=== PATIENT | male | born 1980 | race Caucasian/White ===

== ENCOUNTER 2017-05-28 11:18 | Emergency (ER) | payer OTHER ==
[~2017-05-28] VITALS: Ht 147.3 cm; Wt 38.6 kg
[~2017-05-28 11:18] MED LIST: ACET325 PO; ALBU90OI INH; ALBU90OI6 INH; ALBUIS IH; AMOCLA500 PO; ANTOXYBENA BOTHEARS; ASCO500 PO; AZIT250 PO; CEPH250A PO; CETI10; CETI10 PO; CIPR250 PO; CIPR500 PO; DOXA1; FAMO10; FLUT110OIA IH; FLUT44OIA IH; GUAI600ER; GUAI600T33; GUAI600T33 PO; IBUP400 PO; IPRAIS NEB; IRON PILL PO; KETO10 PO; LEVA.63IS; LEVA.63IS IH; LEVFLO500; LEVFLO500 PO; LEVOFLOXAC750 MG/150 IV; METH1TAB8 PO; MONT4 PO; MOXI400 PO; MULVITA; MULVITMINE PO; Merrem1000 MG IV; Merrem500 MG IV; NUTRISOURCE FI1 EACH PT; OMEP20ER PO; ONDA4 PO; OSEL75CA PO; POLY17UD; POTCIT5 PO; PRED10 PO; PROM25 PO; PROM6.25SY PO; PSECHLCR PO; Pyridium200 MG PT; SERT25; SERT25 PO; TESTTP TOP; TRIM100; Vitamin D2000 UNIT PO; [UNRECOGNIZED DRUG - REMARK]
[2017-05-28 12:04] LABS: Source, Urine Catheter
[2017-05-28 12:13] LABS: Bilirubin, Urine Neg (Neg); Blood, Urine 4+ (Neg); Glucose Qualitative, Urine Neg (Neg); Ketones, Urine Neg (Neg); Leukocyte Esterase, Urine 3+ (Neg); Nitrite, Urine Neg (Neg); Protein, Urine 2+ (Neg); Urobilinogen, Urine NORM (Normal)
[2017-05-28 12:21] LABS: Appearance, Urine Cloudy (Clear); Color, Urine Yellow (P-Yellow)
[2017-05-28 12:23] LABS: Bacteria Mod /hpf
[2017-05-28 12:24] LABS: Squamous Epithelial Cells Not Seen /hpf (Few); White Blood Cells, Urine 25-50 /hpf (0-5)
[2017-05-28] MEDS ORDERED: CEPH250SUA PT (15:27)
[2017-06-30] MEDS ORDERED: LEVFLO500 PO (18:15)
[2017-06-30] MEDS ORDERED: OXYC1L PO (18:27)
== END 2017-05-28 15:45 | disposition home or self-care (01) ==
LOC: ER 11:18
PROVIDERS: Emergency Medicine
DX: L03.311 Cellulitis of abdominal wall (principal); N39.0 Urinary tract infection, site not specified; E11.9 Type 2 diabetes mellitus without complications; Z79.899 Other long term (current) drug therapy
CPT/HCPCS: 81001; 87086; 99283

== ENCOUNTER → 2017-07-06 | Outpatient (CLI) | payer OTHER ==
[~2017-07-06] MED LIST changes: +CEPH250SUA PT; +OXYC1L PO
== END ==
LOC: LAB EV 11:30 → LAB SHORT 11:30
DX: N39.0 Urinary tract infection, site not specified (principal)
CPT/HCPCS: 87077; 87086; 87186

== ENCOUNTER → 2017-07-30 | Outpatient (CLI) | payer OTHER | LOC: EDSTATUS 14:49 → LAB SHORT 16:07 → LAB EV 16:07 | DX: R31.9 Hematuria, unspecified (principal) | CPT/HCPCS: 87077; 87086; 87186 ==

== ENCOUNTER 2017-08-06 00:05 | Day surgery (SDC) | payer OTHER | END 2017-08-06 16:35 | disposition home or self-care (01) | LOC: ATC 00:05 | DX: N39.0 Urinary tract infection, site not specified (principal); K21.9 Gastro-esophageal reflux disease without esophagitis | CPT/HCPCS: 36569; C1751 ==

== ENCOUNTER 2017-08-11 08:06 | Day surgery (SDC) | END 2017-08-11 14:40 | disposition home or self-care (01) ==

== ENCOUNTER 2017-08-20 00:04 | Day surgery (SDC) | payer OTHER | END 2017-08-20 16:10 | disposition home or self-care (01) | LOC: ATC 00:04 | DX: N39.0 Urinary tract infection, site not specified (principal) | CPT/HCPCS: 99211 ==

== ENCOUNTER 2017-09-05 13:05 | Emergency (ER) | payer OTHER ==
[~2017-09-05] VITALS: Ht 147.3 cm; Wt 36.3 kg
[2017-09-05] MEDS ORDERED: CLIN300 PO (15:09)
[2017-09-05 16:15] LABS: Calcium, Ionized (POC) 1.17 mmol/L (1.10-1.46); Chloride (POC) 95 mmol/L (98-108); Creatinine (POC) 0.3 mg/dL (0.8-1.3); Glucose (ISTAT POC) 111 mg/dL (70-99); Hemoglobin (POC) 14.3 g/dL (13.5-17.5); Potassium (POC) 4.2 mmol/L (3.5-5.5); Sodium (POC) 137 mmol/L (135-148); Total CO2 (POC) 30 mmol/L (21-32)
[2017-09-05] MEDS ORDERED: Prilosec Otc20 MG PO (16:33)
== END 2017-09-05 16:39 | disposition home or self-care (01) ==
LOC: ER 13:05
PROVIDERS: Emergency Medicine
DX: K92.2 Gastrointestinal hemorrhage, unspecified (principal); Z88.5 Allergy status to narcotic agent; Z88.2 Allergy status to sulfonamides; Z91.040 Latex allergy status; Z79.899 Other long term (current) drug therapy
CPT/HCPCS: 80047; 85014; 99283

== ENCOUNTER 2017-09-07 00:27 | Day surgery (SDC) | payer OTHER ==
[~2017-09-07 00:27] MED LIST changes: +CLIN300 PO; +Prilosec Otc20 MG PO
== END 2017-09-07 14:45 | disposition home or self-care (01) ==
LOC: ATC 00:27
DX: N39.0 Urinary tract infection, site not specified (principal); Z99.3 Dependence on wheelchair
CPT/HCPCS: 99211

== ENCOUNTER 2017-09-13 00:23 | Day surgery (SDC) | payer OTHER | END 2017-09-13 22:39 | disposition home or self-care (01) | LOC: ATC 00:23 | DX: N39.0 Urinary tract infection, site not specified (principal) ==

== ENCOUNTER 2017-09-27 00:44 | Day surgery (SDC) | payer OTHER | END 2017-09-27 16:02 | disposition home or self-care (01) | LOC: ATC 00:44 | PROC: 02PYX3Z Removal of Infusion Device from Great Vessel, External Approach (ICD-10-PCS; principal; 2017-09-27) | DX: Z45.2 Encounter for adjustment and management of vascular access device (principal); N39.0 Urinary tract infection, site not specified | CPT/HCPCS: 99211 ==

== ENCOUNTER → 2018-03-23 | Outpatient (CLI) | payer OTHER | END | disposition home or self-care (01) | LOC: LAB SHORT 14:08 → LAB 14:08 → EDSTATUS 03-23 12:30 → LAB FUT 03-23 12:30 | DX: R05 Cough (principal) | CPT/HCPCS: 87070; 87077; 87186; 87205 ==

== ENCOUNTER → 2018-08-01 | Outpatient (CLI) | payer OTHER | LOC: LAB EV 15:20 → LAB SHORT 15:20 | DX: R82.90 Unspecified abnormal findings in urine (principal) | CPT/HCPCS: 87077; 87086; 87186 ==

== ENCOUNTER → 2018-09-14 | Outpatient (CLI) | payer OTHER ==
[~2018-09-14] MED LIST changes: +CEFP200 PO; +Sudogest30 MG PO
== END ==
LOC: LAB SHORT 17:21 → LAB 17:21 → LAB FUT 09-15 15:00 → EDSTATUS 09-15 15:00
DX: N39.0 Urinary tract infection, site not specified (principal)
CPT/HCPCS: 87077; 87086; 87186

== ENCOUNTER → 2018-10-13 | Outpatient (CLI) | payer OTHER ==
[2018-10-13 11:04] LABS: Bilirubin, Urine Neg (Neg); Blood, Urine 5+ (Neg); Glucose Qualitative, Urine Neg (Neg); Ketones, Urine Neg (Neg); Leukocyte Esterase, Urine 3+ (Neg); Nitrite, Urine Neg (Neg); Protein, Urine 3+ (Neg); Urobilinogen, Urine NORM (Normal)
[2018-10-13 11:10] LABS: Appearance, Urine Hazy (Clear); Color, Urine Yellow (P-Yellow)
[2018-10-13 11:12] LABS: White Blood Cells, Urine TNTC /hpf (0-5)
[2018-10-13 11:13] LABS: Bacteria Many /hpf; Red Blood Cells, Urine TNTC /hpf (0-2); Squamous Epithelial Cells Mod /hpf (Few)
== END | disposition home or self-care (01) ==
LOC: LAB 08:30 → LAB SHORT 08:30 → LAB FUT 10-13 15:45
PROVIDERS: Internal Medicine Critical Care Medicine
DX: N39.0 Urinary tract infection, site not specified (principal)
CPT/HCPCS: 81001; 87077; 87086; 87186

== ENCOUNTER → 2018-12-07 | Outpatient (CLI) | payer OTHER | LOC: LAB SHORT 17:54 → LAB EV 17:54 | DX: N32.89 Other specified disorders of bladder (principal) | CPT/HCPCS: 87077; 87086; 87186 ==

== ENCOUNTER 2018-12-08 17:09 | Emergency (ER) | payer OTHER ==
[~2018-12-08] VITALS: Ht 147.3 cm; Wt 38.6 kg
[~2018-12-08 17:09] MED LIST changes: -CEFP200 PO; -Sudogest30 MG PO
[2018-12-08 18:04] LABS: Source, Urine Catheter
[2018-12-08 18:17] LABS: Blood, Urine 5+ (Neg); Glucose Qualitative, Urine Neg (Neg); Ketones, Urine Neg (Neg); Leukocyte Esterase, Urine 3+ (Neg); Nitrite, Urine Pos (Neg); Protein, Urine 4+ (Neg); Urobilinogen, Urine 2+ (Normal)
[2018-12-08 18:35] LABS: Bilirubin, Urine 2+ (Neg)
[2018-12-08 18:36] LABS: Appearance, Urine Hazy (Clear); Color, Urine Amber (P-Yellow)
[2018-12-08 18:40] LABS: Bacteria Mod /hpf; Squamous Epithelial Cells Few /hpf (Few)
[2018-12-08 19:08] LABS: BASOPHILS ABSOLUTE AUTO 0.06 K/mm3 (0.00-0.23); BASOPHILS PERCENT AUTO 0 % (0-2); EOSINOPHILS PERCENT AUTO 1 % (0-6); Hematocrit 54.7 % (37.0-53.0); Hemoglobin 17.7 g/dL (13.5-17.5); IMMATURE GRAN ABSOLUTE AUTO 0.07 K/mm3 (0.00-0.10); IMMATURE GRAN PERCENT AUTO 1 % (0-1); LYMPHOCYTES ABSOLUTE AUTO 2.17 K/mm3 (0.84-5.20); LYMPHOCYTES PERCENT AUTO 14 % (21-46); MONOCYTES ABSOLUTE AUTO 0.89 K/mm3 (0.16-1.47); MONOCYTES PERCENT AUTO 6 % (4-13); Mean Corpuscular HGB 27.4 pg (26.0-34.0); Mean Corpuscular HGB Conc 32.4 g/dL (31.5-36.5); Mean Corpuscular Volume 85 fL (80-100); Mean Platelet Volume 12.8 fL (9.1-12.4); NEUTROPHILS PERCENT AUTO 78 % (41-73); Platelet Count 161 K/mm3 (150-400); RDW Coefficient Variation 14.6 % (11.7-14.2); RDW Standard Deviation 42.7 fL (35.1-46.3); Red Blood Cell Count 6.45 M/mm3 (4.30-5.90); White Blood Cell Count 15.09 K/mm3 (4.00-11.30)
[2018-12-08] MEDS ORDERED: OMEP20ER PO (19:40)
[2018-12-08] MEDS ORDERED: Sudogest30 MG PO (19:42)
[2018-12-08 21:56] LABS: Alanine Aminotransfer (ALT/SGP 208 U/L (12-78); Albumin, Blood 3.5 g/dL (3.4-5.0); Albumin/Globulin Ratio 0.7 (0.8-1.8); Alk Phos 204 U/L (50-136); Anion Gap 9 mmol/L (6-16); Aspartate Aminotrans (AST/SGOT 121 U/L (12-37); Bilirubin, Total 1.1 mg/dL (0.1-1.0); Blood Urea Nitrogen 20 mg/dL (8-24); Bun/Creatinine Ratio 49.4 (12.0-20.0); CO2, Blood 26 mmol/L (21-32); Calcium, Blood 8.7 mg/dL (8.5-10.1); Chloride, Blood 96 mmol/L (98-108); Creatinine, Blood 0.41 mg/dL (0.60-1.20); Globulin, Blood 4.9 g/dL (2.2-4.0); Glomerular Filtration Rate >60 (60-); Glucose, Blood 103 mg/dL (70-99); Sodium, Blood 131 mmol/L (136-145); Total Protein, Blood 8.4 g/dL (6.4-8.2)
[2018-12-08] MEDS ORDERED: CEFP200 PO (22:16)
== END 2018-12-08 22:39 | disposition home or self-care (01) ==
LOC: ER 17:09
PROVIDERS: Physician Assistant
DX: N39.0 Urinary tract infection, site not specified (principal); E86.0 Dehydration; R74.0 Nonspecific elevation of levels of transaminase and lactic acid dehydrogenase [LDH]; Q05.9 Spina bifida, unspecified; J96.10 Chronic respiratory failure, unspecified whether with hypoxia or hypercapnia; E11.9 Type 2 diabetes mellitus without complications; H66.92 Otitis media, unspecified, left ear; Z98.2 Presence of cerebrospinal fluid drainage device; Z96.0 Presence of urogenital implants; Z88.5 Allergy status to narcotic agent; Z88.2 Allergy status to sulfonamides; Z91.040 Latex allergy status; Z79.899 Other long term (current) drug therapy
CPT/HCPCS: 36415; 80053; 81001; 83605; 85025; 87040; 87077; 87086; 87186; 96365; 99283-25; J0696; J7030

== ENCOUNTER 2018-12-28 13:27 | Day surgery (SDC) | payer OTHER ==
[~2018-12-28 13:27] MED LIST changes: +CEFP200 PO; +Sudogest30 MG PO
== END 2018-12-28 22:44 | disposition home or self-care (01) ==
LOC: WOUND 13:27
DX: L89.622 Pressure ulcer of left heel, stage 2 (principal); G82.50 Quadriplegia, unspecified; Z99.3 Dependence on wheelchair; Z88.5 Allergy status to narcotic agent; Z91.040 Latex allergy status; Z88.2 Allergy status to sulfonamides
CPT/HCPCS: G0463

== ENCOUNTER 2019-01-05 00:10 | Day surgery (SDC) | payer OTHER | END 2019-01-05 23:57 | disposition home or self-care (01) | LOC: WOUND 00:10 | DX: Z09 Encounter for follow-up examination after completed treatment for conditions other than malignant neoplasm (principal); Z87.2 Personal history of diseases of the skin and subcutaneous tissue; Q05.9 Spina bifida, unspecified; J96.10 Chronic respiratory failure, unspecified whether with hypoxia or hypercapnia; Z93.0 Tracheostomy status; Z99.3 Dependence on wheelchair | CPT/HCPCS: G0463 ==

== ENCOUNTER 2019-03-23 14:02 | Day surgery (SDC) | payer OTHER | END 2019-03-23 23:12 | disposition home or self-care (01) | LOC: WOUND 14:02 | DX: I96 Gangrene, not elsewhere classified (principal); L89.142 Pressure ulcer of left lower back, stage 2; L89.322 Pressure ulcer of left buttock, stage 2; Q05.9 Spina bifida, unspecified; G82.50 Quadriplegia, unspecified; J96.10 Chronic respiratory failure, unspecified whether with hypoxia or hypercapnia; Z93.0 Tracheostomy status; Z99.3 Dependence on wheelchair; Z88.2 Allergy status to sulfonamides; Z88.5 Allergy status to narcotic agent; Z91.040 Latex allergy status; Z79.899 Other long term (current) drug therapy; J32.9 Chronic sinusitis, unspecified; J45.909 Unspecified asthma, uncomplicated; G47.30 Sleep apnea, unspecified | CPT/HCPCS: G0463 ==

== ENCOUNTER 2019-03-29 00:33 | Day surgery (SDC) | payer OTHER | END 2019-03-29 22:46 | disposition home or self-care (01) | LOC: WOUND 00:33 | DX: L89.142 Pressure ulcer of left lower back, stage 2 (principal); L89.322 Pressure ulcer of left buttock, stage 2 ==

== ENCOUNTER 2019-04-05 17:38 | Emergency (ER) | payer OTHER ==
[~2019-04-05] VITALS: Ht 149.9 cm; Wt 38.6 kg
[2019-04-05 18:26] LABS: Influenza A Negative (NEGATIVE); Influenza B Positive (NEGATIVE)
[2019-04-05 18:37] LABS: BASOPHILS ABSOLUTE AUTO 0.04 K/mm3 (0.00-0.23); BASOPHILS PERCENT AUTO 1 % (0-2); EOSINOPHILS ABSOLUTE AUTO 0.17 K/mm3 (0.00-0.68); EOSINOPHILS PERCENT AUTO 3 % (0-6); Hematocrit 44.7 % (37.0-53.0); Hemoglobin 13.7 g/dL (13.5-17.5); IMMATURE GRAN ABSOLUTE AUTO 0.03 K/mm3 (0.00-0.10); IMMATURE GRAN PERCENT AUTO 1 % (0-1); LYMPHOCYTES ABSOLUTE AUTO 1.66 K/mm3 (0.84-5.20); LYMPHOCYTES PERCENT AUTO 26 % (21-46); MONOCYTES ABSOLUTE AUTO 0.38 K/mm3 (0.16-1.47); MONOCYTES PERCENT AUTO 6 % (4-13); Mean Corpuscular HGB 26.5 pg (26.0-34.0); Mean Corpuscular HGB Conc 30.6 g/dL (31.5-36.5); Mean Corpuscular Volume 87 fL (80-100); Mean Platelet Volume 9.8 fL (9.1-12.4); NEUTROPHILS ABSOLUTE AUTO 4.14 K/mm3 (1.96-9.15); NEUTROPHILS PERCENT AUTO 65 % (41-73); Platelet Count 219 K/mm3 (150-400); RDW Coefficient Variation 13.4 % (11.7-14.2); RDW Standard Deviation 42.9 fL (35.1-46.3); Red Blood Cell Count 5.17 M/mm3 (4.30-5.90); White Blood Cell Count 6.42 K/mm3 (4.00-11.30)
[2019-04-05 18:56] LABS: Alanine Aminotransfer (ALT/SGP 32 U/L (12-78); Albumin, Blood 3.7 g/dL (3.4-5.0); Albumin/Globulin Ratio 0.8 (0.8-1.8); Alk Phos 97 U/L (50-136); Anion Gap 4 mmol/L (6-16); Aspartate Aminotrans (AST/SGOT 13 U/L (12-37); Bilirubin, Total 0.3 mg/dL (0.1-1.0); Blood Urea Nitrogen 10 mg/dL (8-24); Bun/Creatinine Ratio 36.6 (12.0-20.0); CO2, Blood 30 mmol/L (21-32); Calcium, Blood 8.9 mg/dL (8.5-10.1); Chloride, Blood 104 mmol/L (98-108); Creatinine, Blood 0.27 mg/dL (0.60-1.20); Globulin, Blood 4.9 g/dL (2.2-4.0); Glomerular Filtration Rate >60 (60-); Glucose, Blood 95 mg/dL (70-99); Potassium, Blood 3.9 mmol/L (3.5-5.5); Sodium, Blood 138 mmol/L (136-145); Total Protein, Blood 8.6 g/dL (6.4-8.2); Troponin I <0.015 ng/mL (0.000-0.040)
[2019-04-05] MEDS ORDERED: Augmentin 875-1 EACH PO (19:07)
[2019-04-05] MEDS ORDERED: Tamiflu75 MG PO (19:26)
== END 2019-04-05 19:50 | disposition home or self-care (01) ==
LOC: ER 17:38
PROVIDERS: Emergency Medicine; Physician Assistant
DX: J10.1 Influenza due to other identified influenza virus with other respiratory manifestations (principal); E11.9 Type 2 diabetes mellitus without complications; Z88.5 Allergy status to narcotic agent; Z88.2 Allergy status to sulfonamides; Z91.040 Latex allergy status; Z79.899 Other long term (current) drug therapy
CPT/HCPCS: 36415; 71046; 80053; 84484; 85025; 87804; 93005; 93010; 99284-25

== ENCOUNTER 2019-04-13 00:34 | Day surgery (SDC) | payer OTHER ==
[~2019-04-13 00:34] MED LIST changes: +Augmentin 875-1 EACH PO; +Tamiflu75 MG PO
== END 2019-04-13 11:55 | disposition home or self-care (01) ==
LOC: WOUND 00:34
DX: L89.142 Pressure ulcer of left lower back, stage 2 (principal); L89.322 Pressure ulcer of left buttock, stage 2
CPT/HCPCS: 87070; 87077

== ENCOUNTER 2019-05-04 00:09 | Day surgery (SDC) | payer OTHER | END 2019-05-04 23:26 | disposition home or self-care (01) | LOC: WOUND 00:09 | DX: L89.322 Pressure ulcer of left buttock, stage 2 (principal); J96.11 Chronic respiratory failure with hypoxia ==

== ENCOUNTER 2019-05-09 02:04 | Day surgery (SDC) | payer OTHER | END 2019-05-09 23:40 | disposition home or self-care (01) | LOC: WOUND 02:04 | DX: L89.322 Pressure ulcer of left buttock, stage 2 (principal); L89.152 Pressure ulcer of sacral region, stage 2 | CPT/HCPCS: G0463 ==

== ENCOUNTER 2019-05-18 00:23 | Day surgery (SDC) | payer OTHER | END 2019-05-18 23:21 | disposition home or self-care (01) | LOC: WOUND 00:23 | DX: L89.322 Pressure ulcer of left buttock, stage 2 (principal); J96.10 Chronic respiratory failure, unspecified whether with hypoxia or hypercapnia; Z99.3 Dependence on wheelchair | CPT/HCPCS: G0463 ==

== ENCOUNTER → 2020-02-26 | Outpatient (CLI) | payer OTHER ==
[~2020-02-26] MED LIST changes: +CEFDINIR250 MG/51 PO; -CETI10 PO; +FEROSUL220 MG/51 PO; +FERSU90EL PO; -LEVA.63IS IH; +LEVALBUTER1.25 MG/1 NEB; +LEVAQUIN PO; +PIPERACIL-TA3.375 G1 IV; +PROBIOTIC1 EA13 PO; +SERT50 PO; +VITAMIN D325 MC3 PO; +ZYRTEC10 M2 PO; +[UNRECOGNIZED DRUG - CODE] IV
== END | disposition home or self-care (01) ==
LOC: LAB EV 14:37 → LAB SHORT 14:37
DX: N39.0 Urinary tract infection, site not specified (principal)
CPT/HCPCS: 87077; 87086; 87186

== ENCOUNTER → 2020-06-26 | Outpatient (CLI) | payer OTHER ==
[~2020-06-26] MED LIST changes: -FEROSUL220 MG/51 PO; -FERSU90EL PO; +LEVALBUTER1.25 MG/01 NEB; -LEVALBUTER1.25 MG/1 NEB; -LEVAQUIN PO; -PIPERACIL-TA3.375 G1 IV; -PROBIOTIC1 EA13 PO; -[UNRECOGNIZED DRUG - CODE] IV
== END ==
LOC: LAB SHORT 11:41
DX: N39.0 Urinary tract infection, site not specified (principal); Z88.2 Allergy status to sulfonamides; Z88.5 Allergy status to narcotic agent; Z91.040 Latex allergy status
CPT/HCPCS: 87077; 87086; 87186

== ENCOUNTER 2020-07-10 14:27 | Inpatient (IN) | payer OTHER ==
[~2020-07-10] VITALS: Ht 147.3 cm; Wt 46.2 kg
[~2020-07-10 14:27] MED LIST changes: +FERSU90EL PO; -LEVALBUTER1.25 MG/01 NEB; +LEVALBUTER1.25 MG/1 NEB; +PIPERACIL-TA3.375 G1 IV; +PROBIOTIC1 EA13 PO
--- NOTE | 2020-07-10 18:36 | NUR ---
FEEDING SET UP AT 63MLs PER HOUR, PT'S MOTHER REQUESTS 500ML BE ADDED TO THE FEEDING BAG. FLUSH SET UP FOR 50MLs EVERY 1 HR.
--- NOTE | 2020-07-10 19:50 | NUR ---
ADMIT NOTE DIRECT ADMIT, PT TO ROOM 1450 VIA HOME WHEELCHAIR WITH CAREGIVER/MOTHER MALLIKA. PT AND FAMILY ORIENTED TO ROOM AND CALL LIGHT. PT WAS DISCHARGED HOME YESTERDAY AFTERNOON/EVENING WITH PLANS FOR HOME IV ANTIBIOTICS; MOTHER STATES THE ANTIBIOTICS WERE NOT DELIVERED; PT MISSED [address] SALAZAR AT BEDSIDE, VERBAL AND WRITTEN ORDERS ENTERED. IV ANTIBIOTIC RESTARTED. PLANS FOR DISCAHRGE TOMORROW ONCE ANTIBIOTICS DELIVERED. PT A&O; CALM AND COOPERATIVE WITH CARE. PT W/C BOUND AT BASELINE, PT MOTHER IN CAREGIVER AND MANAGEMENTS TRACH/HOME VENT, TUBE FEEDING AND OTHER CARE AT HOME. HOME VENT HAS 2L BLEED IN; LS COARSE T/O SPO2 >94%; SUCTION SET UP AT BEDSIDE. TUBE FEEDING ORDERED AND SET UP. BOWEL TONES NORMOACTIVE, REPORTS TENDERNESS ON PALPATION; MOTHER REPORTS LOOSE STOOL THIS AM. SOFT BP NOTED, TRENDING UP; OTHER VSS. NO OTHER ACUTE CHANGES NOTED. REPORT GIVEN TO ONCOMING RN.
--- NOTE | 2020-07-10 22:10 | NUR ---
ASSUMED CARE OF PATIENT AT APPROXIMATELY 1910 FROM ARSH Pabon RN. PATIENT ALERT AND ORIENTED X4; SPEECH GARBLED AT TIMES. PATIENT W/C BOUND; MOTHER DOES COMPLETE CARE FOR PATIENT. PATIENT DENIES PAIN, DIZZINESS OR NAUSEA. PCU NO TELE STATUS; OXYGEN SATURATION ABOVE 90% ON HOME TRACH W/2LPM BLEED IN. TF PER ORDER; CHRONIC SUPRABUPIC CATH DRAINING NATHALIE URINE. PG ZENA. PATIENT'S MOTHER REPORTS PATIENT HEART RATE ELEVATED DUE TO BREATHING TREATMENTS. PATIENT CURRENTLY RESTING IN BED; CALL LIGHT IN REACH; BED IN LOWEST POSISTION
[2020-07-11 05:22] LABS: Hematocrit 35.5 % (37.0-53.0); Hemoglobin 11.2 g/dL (13.5-17.5); Mean Corpuscular HGB 27.1 pg (26.0-34.0); Mean Corpuscular HGB Conc 31.5 g/dL (31.5-36.5); Mean Corpuscular Volume 86 fL (80-100); Mean Platelet Volume 9.2 fL (9.1-12.4); Platelet Count 314 K/mm3 (150-400); RDW Coefficient Variation 15.3 % (11.7-14.2); RDW Standard Deviation 44.6 fL (35.1-46.3); Red Blood Cell Count 4.14 M/mm3 (4.30-5.90); White Blood Cell Count 12.54 K/mm3 (4.00-11.30)
[2020-07-11 05:56] LABS: Anion Gap 6 mmol/L (6-16); Blood Urea Nitrogen 14 mg/dL (8-24); Bun/Creatinine Ratio 31.5 (12.0-20.0); CO2, Blood 27 mmol/L (21-32); Calcium, Blood 8.4 mg/dL (8.5-10.1); Chloride, Blood 103 mmol/L (98-108); Creatinine, Blood 0.45 mg/dL (0.60-1.20); Glomerular Filtration Rate >60 (60-); Glucose, Blood 103 mg/dL (70-99); Potassium, Blood 3.8 mmol/L (3.5-5.5); Sodium, Blood 136 mmol/L (136-145)
--- NOTE | 2020-07-11 06:22 | NUR ---
PATIENT SLEPT MOST OF SHIFT; MOTHER PROVIDED COMPLETE CARE; CALLED WHEN ASSISTANCE WAS NEEDED. VSS.
--- NOTE | 2020-07-11 11:22 | NUR ---
Call to Gavi Donnelly, schedule supervisor, regarding pt's mom's concerns for "feeling gaggy" which she thinks might be due to his change in formula, but she also mentioned this morning that his sputum production and coughing might have also been a factor. Gavi plans on checking in on the pt and talking to the pt's mom about her concerns this morning.
--- NOTE | 2020-07-11 12:36 | NUR ---
Pt returned from CT scan; he is still febrile, despite cooling measures. Mom had declined any antipyretics this morning. Will request from Dr. Harrison at this time, as MOm is now requesting them. Pt does not have any c/o discomfort. Waiting on CT results; mom expresses desire to go home with pt, but states she understand that it may not be possible given the pt's condition.
--- NOTE | 2020-07-11 14:36 | NUR ---
Spoke with Dr. Varela by phone to request consultation. He agreed to see the pt.
--- NOTE | 2020-07-11 16:21 | NUR ---
Spiritual care note: Tasked to meet with family to discuss advanced care planning and code-status. Family reports satisfaction with pt's Full Code status and see no need for conevrsation.
--- NOTE | 2020-07-11 17:26 | NUR ---
Pt tolerated bronchoscopy withDr. Monse Guillen RT, Konrad Barboza RN, Gloria Butcher RN attending. Declined any sedation/narcotics during the procedure. Specimens sent from sputum and urine as ordered. Waiting for CXR. Mother assisted pt from bed to chair at pt's request. Mom has been transferring pt by carrying him in her arms. Encouraged use of lift, but she declined it at this time. Pt appears comfortable, and has no complaints or needs voiced at this time.
--- NOTE | 2020-07-11 21:01 | NUR ---
This LN took over care at 1845, patient is sitting up in wheelchair, mother Yoana at patient side. Patient is tired but alert this evening. Upon starting tube feeding patient mom requested that we do not run it at the ordered rate of 60ml/hr and run it at 50ml/hr and wants patient to receive 50ml/hr free water flush, as well as only two cans equaling 500ml(s) total and not the ordered amount of ISO 60ml/hr for 11 hours at 660ml total. Yoana patient mom is going to talk to eap clinician in the morning. Yoana also expressed possiblity of requesting patient to be transferred to [facility] where patient has received a majority of his care throughout his medical history.
[2020-07-11 21:18] LABS: Influenza A, PCR NEGATIVE (NEGATIVE); Influenza B, PCR NEGATIVE (NEGATIVE); Resp Syncytial Virus, PCR NEGATIVE (NEGATIVE); SARS-Cov-2 (COVID-19) PCR, MMC NEGATIVE (NEGATIVE)
[2020-07-12 04:12] LABS: BASOPHILS ABSOLUTE AUTO 0.02 K/mm3 (0.00-0.23); BASOPHILS PERCENT AUTO 0 % (0-2); EOSINOPHILS PERCENT AUTO 0 % (0-6); Hematocrit 32.5 % (37.0-53.0); Hemoglobin 10.4 g/dL (13.5-17.5); IMMATURE GRAN PERCENT AUTO 1 % (0-1); LYMPHOCYTES ABSOLUTE AUTO 1.02 K/mm3 (0.84-5.20); LYMPHOCYTES PERCENT AUTO 7 % (21-46); MONOCYTES ABSOLUTE AUTO 1.06 K/mm3 (0.16-1.47); MONOCYTES PERCENT AUTO 7 % (4-13); Mean Corpuscular HGB 27.4 pg (26.0-34.0); Mean Corpuscular Volume 86 fL (80-100); Mean Platelet Volume 9.3 fL (9.1-12.4); NEUTROPHILS PERCENT AUTO 85 % (41-73); Platelet Count 250 K/mm3 (150-400); RDW Coefficient Variation 15.2 % (11.7-14.2); RDW Standard Deviation 46.2 fL (35.1-46.3)
[2020-07-12 04:29] LABS: International Normalized Ratio 1.36; Prothrombin Time Results 14.4 Sec (9.7-11.5)
--- NOTE | 2020-07-12 05:58 | NUR ---
Patient got a critical lab gram (-) bacillis set #1 blood cultures , pharmacy called to verify antibiotic course.
--- NOTE | 2020-07-12 08:54 | NUR ---
07/11/20 1600 LATE NOTE Urinary analysis was ordered by Dr. Harrison, but pt has suprapubic catheter which pt's mom Yoana states has been in for 3 weeks. Yoana said that she normally changes the suprapubic catheter out about 2-3 times per month, so she would like to change it today. Noted pt presently has an 18 guage silicon catheter. Pt's mom declined to allow staff to change it, she states that she does it at home and wants to take care of it. She deflated the balloon and placed the new 18g silicon catheter, inflated the new balloon with 8 cc sterile NS. Clear yellow urine evacuated from tube immediately following insertion. [id number] Bronchoscopy done in PCU [address] Varela. 1700 Urine collection was adequate amount to be sent for UA.
--- NOTE | 2020-07-12 09:08 | NUR ---
Mom Yoana at bedside. States she has not slept for the past 2 nights. She says that her will come to give her a break today, but that she doesn't like to be away from her son. Pt appears to be calm, non anxious, and non distressed. Denies pain, but states that he doesn't feel any better than he did yesterday. Mom states that she turned the tube feeding off around 7 am because he was having an upset stomach. No vomiting, denies nausea at this time; he was able to take oral medications via peg tube and one by mouth without difficulty. Lung sounds are coarse, but less adventitious sounds than noted 24 hours ago. Afebrile, but tachycardic at 117-128 bpm. SpO2 90s while on his home ventilator, RR 14 and O2 at 2 l/min. Pt has not had bowel movement in 2 days. Bowel care given this morning. Urine draining is clear yellow from suprapubic catheter (changed yesterday); 175 cc emptied this morning. IVF NS infusing at 75 cc/hour via Powerglide in right upper arm. Mom lifted pt from bed to his wheechair by herself, which she states she has been doing for years. She did state that she has a torn rotator cuff and will have it repaired, but she declines our offer of the use of the lift for pt transfers. Staff help her with pt's lines/tubes with transfers, but she does not want to transfer pt any other way that by her own lifting.
--- NOTE | 2020-07-12 10:07 | NUR ---
ZOFRAN given for c/o nausea, and Tylenol given for headache at this time.
--- NOTE | 2020-07-12 13:50 | NUR ---
07/12/20- per chart review, pt is still having elevated Temp. Pt had chest CT and mucus plug was found along with large L-pleural effusion. Broncoscope was done to remove mucus plug. Bowel care was started as pt has not had BM in 2 days. -zoila
--- NOTE | 2020-07-12 16:11 | NUR ---
Pt tolerated the thoracentesis and was seen about [address] Stafford, who spoke with both of the pt's parents at the bedside. Yoana showed me a photo that the amount of fluid removed was nearly 1000cc. Follow up chest x ray done.
[2020-07-12 16:32] LABS: Automated BF RBC Count 0.013 M/mm3 (0-0); Automated BF WBC Count 1.551 K/mm3 (0-999); Body Fluid WBC Count 1551 /mm3 (0-999); RBC Count, Body Fluid 13000 /mm3 (0-0)
--- NOTE | 2020-07-12 16:32 | NUR ---
PT was seen and evaluated by speech therapist at this time. Strict NPO until swallow study can be completed on Wednesday.
[2020-07-12 16:48] LABS: Cholesterol, Body Fluid 111 mg/dL; Glucose, Body Fluid 156 mg/dL; Lactate Dehydrogenase, Body Fl 124 U/L; Protein, Body Fluid 5.3 g/dL
[2020-07-12 16:50] LABS: pH, Body Fluid 7.3
[2020-07-12 17:37] LABS: Total Cell Count, Body Fluid 100
[2020-07-12 17:38] LABS: Appearance, Body Fluid Hazy (Clear)
--- NOTE | 2020-07-12 20:22 | NUR ---
THIS LN TOOK OVER CARE AT 1845, PATIENT IS SITTING UP IN WHEELCHAIR, MOM AND DAD AT BEDSIDE, ALERT ORIENTATED WATCHING TV WITH CPT VEST IN PLACE, REMOVED WITH MOMS HELP, MOM DOES MOST OF PATIENT(S) CARE PER HER REQUEST, NOTED SHE WAS SUCTIONING PATIENT APPROPRIATELY WITH 14FR SUCTION CATETER USING STERILE TECHNIQUE. WILL CONTINUE TO MONITOR RESPIRATORY, CARDIAC AND PROVIDE PATIENT WITH TOTAL CARE NEEDS.
--- NOTE | 2020-07-13 04:43 | NUR ---
THIS LN TOOK OVER CARE AT 1845, PATIENT SITTING IN WHEELCHAIR, MOM AND DAD AT HIS SIDE, ALERT AND ORIENTATED PARTICIPATING IN CONVERSATION WATCHING TV. PATIENT HAD A BOWEL MOVEMENT THIS EVENING SOFT, BROWN AND MOM HAD USE SALINE IN G-TUBE TO ASSIST BOWEL MOVEMENT, UPON PUTTING PATIENT TO BED THIS EVENING, MOM HAD HELD PATIENT WHILE IN SLING/LIFT AND SWUNG HIM INTO BED ALMOST CAUSING THE LIFT TO COLLAPSE. MOM WAS EDUCATED ABOUT HOW THE LIFT WORKS AND TWO PERSON STAFF ASSIST WITH LIFT. TUBE FEED WAS STARTED AND RAN PER MOM WHO ONLY WANTS ISO 1.5 RUNNING AT 50ML/HR WITH 500ML TOTAL FEED WITH 50 FWF EVERY ONE HOUR.
[2020-07-13 08:10] LABS: BASOPHILS ABSOLUTE AUTO 0.01 K/mm3 (0.00-0.23); BASOPHILS PERCENT AUTO 0 % (0-2); EOSINOPHILS ABSOLUTE AUTO 0.03 K/mm3 (0.00-0.68); EOSINOPHILS PERCENT AUTO 0 % (0-6); Hematocrit 28.8 % (37.0-53.0); Hemoglobin 9.1 g/dL (13.5-17.5); IMMATURE GRAN ABSOLUTE AUTO 0.05 K/mm3 (0.00-0.10); IMMATURE GRAN PERCENT AUTO 1 % (0-1); LYMPHOCYTES ABSOLUTE AUTO 1.29 K/mm3 (0.84-5.20); LYMPHOCYTES PERCENT AUTO 14 % (21-46); MONOCYTES ABSOLUTE AUTO 0.58 K/mm3 (0.16-1.47); MONOCYTES PERCENT AUTO 6 % (4-13); Mean Corpuscular HGB 27.5 pg (26.0-34.0); Mean Corpuscular HGB Conc 31.6 g/dL (31.5-36.5); Mean Corpuscular Volume 87 fL (80-100); Mean Platelet Volume 10.2 fL (9.1-12.4); NEUTROPHILS PERCENT AUTO 79 % (41-73); Platelet Count 206 K/mm3 (150-400); RDW Coefficient Variation 15.2 % (11.7-14.2); RDW Standard Deviation 47.1 fL (35.1-46.3); Red Blood Cell Count 3.31 M/mm3 (4.30-5.90); White Blood Cell Count 9.16 K/mm3 (4.00-11.30)
[2020-07-13 08:29] LABS: Alanine Aminotransfer (ALT/SGP 30 U/L (12-78); Albumin/Globulin Ratio 0.5 (0.8-1.8); Alk Phos 166 U/L (50-136); Anion Gap 4 mmol/L (6-16); Aspartate Aminotrans (AST/SGOT 13 U/L (12-37); Bilirubin, Total 0.3 mg/dL (0.1-1.0); Blood Urea Nitrogen 13 mg/dL (8-24); Bun/Creatinine Ratio 41.3 (12.0-20.0); CO2, Blood 27 mmol/L (21-32); Calcium, Blood 7.6 mg/dL (8.5-10.1); Chloride, Blood 104 mmol/L (98-108); Creatinine, Blood 0.32 mg/dL (0.60-1.20); Globulin, Blood 4.3 g/dL (2.2-4.0); Glomerular Filtration Rate >60 (60-); Glucose, Blood 156 mg/dL (70-99); Potassium, Blood 3.3 mmol/L (3.5-5.5); Sodium, Blood 135 mmol/L (136-145); Total Protein, Blood 6.3 g/dL (6.4-8.2)
--- NOTE | 2020-07-13 10:45 | NUR ---
PHYSICIAN AT BEDSIDE PULMONOLOGY AT BEDSIDE. NO NEW ORDERS AT THIS TIME.
--- NOTE | 2020-07-13 18:33 | NUR ---
SHIFT SUMMARY PT ALERT AND ORIENTED X 4. OXYGEN SATURATION MAINTAINED ABOVE 92% ON 2 L OF OXYGEN VIA TRACH/HOME VENT. BP STABLE. HR STABLE. NO CP OR PRESSURE. PT'S MOM ASSISTED PT IN MOVING FROM BED TO WHEELCHAIR. PT'S MOM PROVIDED PT WITH ORAL CARE AND SUCTION NEEDED. THIS RN PROVIDED PT WITH ORAL CARE T/O SHIFT. PT REPORTS NO PAIN. PT REPOTS NAUSEA AT TIMES. MEDICATION GIVEN PER EMAR. PT REPORTS RELIEF. WILL CONTINUE TO MONITOR UNTIL REPORT GIVEN TO NIGHTSHIFT RN.
[2020-07-14 04:18] LABS: BASOPHILS ABSOLUTE AUTO 0.01 K/mm3 (0.00-0.23); BASOPHILS PERCENT AUTO 0 % (0-2); EOSINOPHILS ABSOLUTE AUTO 0.04 K/mm3 (0.00-0.68); EOSINOPHILS PERCENT AUTO 1 % (0-6); Hemoglobin 8.5 g/dL (13.5-17.5); IMMATURE GRAN ABSOLUTE AUTO 0.03 K/mm3 (0.00-0.10); IMMATURE GRAN PERCENT AUTO 1 % (0-1); LYMPHOCYTES ABSOLUTE AUTO 0.96 K/mm3 (0.84-5.20); LYMPHOCYTES PERCENT AUTO 18 % (21-46); MONOCYTES ABSOLUTE AUTO 0.44 K/mm3 (0.16-1.47); MONOCYTES PERCENT AUTO 8 % (4-13); Mean Corpuscular HGB 27.3 pg (26.0-34.0); Mean Corpuscular HGB Conc 31.5 g/dL (31.5-36.5); Mean Corpuscular Volume 87 fL (80-100); Mean Platelet Volume 10.8 fL (9.1-12.4); NEUTROPHILS ABSOLUTE AUTO 3.75 K/mm3 (1.96-9.15); NEUTROPHILS PERCENT AUTO 72 % (41-73); Platelet Count 198 K/mm3 (150-400); RDW Coefficient Variation 15.4 % (11.7-14.2); Red Blood Cell Count 3.11 M/mm3 (4.30-5.90); White Blood Cell Count 5.23 K/mm3 (4.00-11.30)
[2020-07-14 04:37] LABS: Alanine Aminotransfer (ALT/SGP 34 U/L (12-78); Albumin, Blood 1.9 g/dL (3.4-5.0); Albumin/Globulin Ratio 0.4 (0.8-1.8); Alk Phos 167 U/L (50-136); Anion Gap 2 mmol/L (6-16); Aspartate Aminotrans (AST/SGOT 44 U/L (12-37); Bilirubin, Total 0.4 mg/dL (0.1-1.0); Blood Urea Nitrogen 8 mg/dL (8-24); Bun/Creatinine Ratio 25.3 (12.0-20.0); CO2, Blood 28 mmol/L (21-32); Calcium, Blood 7.8 mg/dL (8.5-10.1); Chloride, Blood 107 mmol/L (98-108); Creatinine, Blood 0.32 mg/dL (0.60-1.20); Globulin, Blood 4.5 g/dL (2.2-4.0); Glomerular Filtration Rate >60 (60-); Glucose, Blood 126 mg/dL (70-99); Potassium, Blood 3.8 mmol/L (3.5-5.5); Sodium, Blood 137 mmol/L (136-145); Total Protein, Blood 6.4 g/dL (6.4-8.2)
--- NOTE | 2020-07-14 04:46 | NUR ---
FARMWORKER DAIRY SUMMARY PT MAINTAINED O2 SATS >92% ON 2L PER VENT. PT DENIED ANY PAIN OR NAUSEA THIS SHIFT. TUBE FEEDING RUNNING AT 50ML/HR BUT PAUSED FOR 3 HRS PER ORDER W FLUSH AT 45ML/HR. NS RNUNNING AT 75ML/HR. PT'S MOTHER AT BEDSIDE ASSISTING W PT'S CARE. PT'S MOTHER ENCOURAGED TO LET HOSPITAL STAFF DO PT'S CARE THAT INVOLVED LIFTING/CLEAING OF PT, MOTHER AGREED TO THIS. PT'S VSS, MORGAN.
--- NOTE | 2020-07-14 11:28 | NUR ---
UPDATE PT'S ABD INCREASING IN DISTENTION. PT'S MOM TURNED OFF TUBE FEEDINGS AT THIS TIME. WHEN PT MOVED FROM BED TO WHEELCHAIR SMALL AMOUNT OF BLOOD ON AICHA. QUARTER SIZED AMOUNT. PT'S MOM REPORTS NO BLOOD IN STOOL LAST NOC. WILL CONTINUE TO MONITOR.
--- NOTE | 2020-07-14 14:41 | NUR ---
UPDATE PHYSICIAN ORDERS FOR PT TO HAVE CT SCAN OF ABD, NEW ABX ORDERED. SEE EMAR.
--- NOTE | 2020-07-14 14:44 | NUR ---
UPDATE WITH SEWING MACHINE OPERATOR SEMIAUTOMATIC SEWING MACHINE OPERATOR SEMIAUTOMATIC INFORMED PT'S TPN STOPPED THIS AM PER MOM'S REQUEST D/T DISTENDED ABD. WILL CONTINUE SCHEDULED TPN FEEDINGS THIS NOC IF PT IS ABLE TO TOLERATE OR IF NOT DC'D AFTER RESULTS ARE RECIEVED REGARDING CT OF ABD.
--- NOTE | 2020-07-14 16:32 | NUR ---
UPDATE PHYSICIAN NOTIFIED OF PT'S CT SCAN RESULTS. IV FLUIDS BEING HELD AT THIS TIME.
--- NOTE | 2020-07-14 18:13 | NUR ---
SHIFT SUMMARY PT ALERT AND ORIENTED X 4. HR STABLE. BP STABLE. NO CP OR PRESSURE. OXYGEN SATURATION MAINTAINED ABOVE 92% ON 2 L OF OXYGEN VIA TRACH/HOME VENT. PHYSICIAN TO SEE PT AT BEDSIDE, SEE PT NOTES. G-TUBE PATENT, NO TPN GTT AT THIS TIME. FOREIGN LAW CONSULTANT AWARE. CHAMBERS PATENT AND DRAINING. NO NS GTT AT THIS TIME. HOLDING PER PHYSICIAN. PLAN TO RESUME TPN THIS NOC IF PT ABLE TO TOLERATE, WILL INFORM NOC RN. ORAL CARE PROVIDED WHEN PT ALLOWED, PT REFUSED AT TIMES. WILL CONTINUE TO MONITOR UNTIL REPORT GIVEN TO NIGHTSHIFT RN.
[2020-07-15 04:17] LABS: BASOPHILS ABSOLUTE AUTO 0.02 K/mm3 (0.00-0.23); BASOPHILS PERCENT AUTO 1 % (0-2); EOSINOPHILS ABSOLUTE AUTO 0.05 K/mm3 (0.00-0.68); EOSINOPHILS PERCENT AUTO 1 % (0-6); Hematocrit 26.2 % (37.0-53.0); Hemoglobin 8.1 g/dL (13.5-17.5); IMMATURE GRAN ABSOLUTE AUTO 0.02 K/mm3 (0.00-0.10); IMMATURE GRAN PERCENT AUTO 1 % (0-1); LYMPHOCYTES ABSOLUTE AUTO 0.96 K/mm3 (0.84-5.20); LYMPHOCYTES PERCENT AUTO 26 % (21-46); MONOCYTES ABSOLUTE AUTO 0.25 K/mm3 (0.16-1.47); MONOCYTES PERCENT AUTO 7 % (4-13); Mean Corpuscular HGB 26.5 pg (26.0-34.0); Mean Corpuscular HGB Conc 30.9 g/dL (31.5-36.5); Mean Corpuscular Volume 86 fL (80-100); Mean Platelet Volume 9.9 fL (9.1-12.4); NEUTROPHILS PERCENT AUTO 65 % (41-73); Platelet Count 233 K/mm3 (150-400); RDW Coefficient Variation 15.2 % (11.7-14.2); Red Blood Cell Count 3.06 M/mm3 (4.30-5.90)
[2020-07-15 04:43] LABS: Alanine Aminotransfer (ALT/SGP 24 U/L (12-78); Albumin, Blood 1.6 g/dL (3.4-5.0); Albumin/Globulin Ratio 0.5 (0.8-1.8); Alk Phos 132 U/L (50-136); Anion Gap 4 mmol/L (6-16); Aspartate Aminotrans (AST/SGOT 14 U/L (12-37); Bilirubin, Total 0.3 mg/dL (0.1-1.0); Blood Urea Nitrogen 5 mg/dL (8-24); Bun/Creatinine Ratio 18.1 (12.0-20.0); CO2, Blood 26 mmol/L (21-32); Calcium, Blood 6.8 mg/dL (8.5-10.1); Chloride, Blood 115 mmol/L (98-108); Creatinine, Blood 0.28 mg/dL (0.60-1.20); Globulin, Blood 3.3 g/dL (2.2-4.0); Glomerular Filtration Rate >60 (60-); Glucose, Blood 96 mg/dL (70-99); Potassium, Blood 2.7 mmol/L (3.5-5.5); Sodium, Blood 145 mmol/L (136-145); Total Protein, Blood 4.9 g/dL (6.4-8.2)
--- NOTE | 2020-07-15 06:11 | NUR ---
SHIFT SUMMARY PT PCU NO TELE STATUS. A&O TO SELF & MOTHER @ BEDSIDE. PT SPEECH INTERMITTENTLY GARBLED & INCOMPREHENSIBLE. VSS. SPO2 > 92% ON HOME VENT W/ 2L BLEED IN. PT W/ GASTROSTOMY TUBE & CECOSTOMY TUBE. CYCLIC TF HELD UNTIL PT IN BED & AFTER BM PER PT MOTHER/CAREGIVER REQUEST. 6 HRS OF TF GIVEN PER TF ORDER. TF TURNED OFF @ APPROX 0600 W/ PLAN TO RESUME AFTER 3 HR HOLD PER TF ORDER/INSTRUCTIONS. SUPRAPUBIC CATH PATENT & DRAINING YELLOW URINE. PT W/ NOTED ANASARCA W/ PT MOTHER/CAREGIVER REPORT OF NEW SWELLING TO PT PENIS. NS GTT CONTINUES TO BE ON STANDBY. PT REQUIRING Q2H MAX ASSIST REPOSITIONING. BILAT EXTREMITIES ELEVATED ON PILLOWS. WILL CONTINUE TO MONITOR & PROVIDE CARE UNTIL REPORT OFF TO DAY SHIFT RN.
--- NOTE | 2020-07-15 16:41 | NUR ---
SHIFT SUMMARY PT A&O; CALM AND COOPERATIVE WITH CARE. CAREGIVERS AT BEDSIDE T/O SHIFT, ASSISTING WITH CARE. PT REPORT NAUSEA AND TENDERNESS TO ABD; MEDICATED WITH NASUEA; HELD OFF ON RESTARTING TUBE FEEDING UNTIL APPROX 1000, PT TOLERATING WELL. NOTIFEID DR JONES OF SWELLING, NEW ORDERS TO GIVEN LASIX 40 MG IV NOW AND TO STOP IV FLUIDS, STRICT I&O AND FLUIDS RESTRICTIONS OF 2000ML. GOOD OUTPUT NOTED. PT RECEIVING IV ANTIBIOTICS. VSS. NO OTHER ACUTE CHANGES NOTED. WILL CONTINUE TO MONITOR. UNTIL REPORT GIVEN TO ONCOMING RN.
--- NOTE | 2020-07-15 21:05 | NUR ---
CARE ASSUMPTION PT PCU NO TELE STATUS. A&O TO SELF & FAMILY. PT MOTHER/CAREGIVER AT BEDSIDE PROVIDING PRIMARY PT CARE. PT SPEECH INTERMITTENTLY GARBLED/DIFFICULT TO UNDERSTAND. PT JOKING/LAUGHING IN RM, RECLINED IN MOTORIZED RECLINING WHEELCHAIR. PT VSS. SPO2 > 92% ON TRACH HOME VENT W/ 2L BLEED IN. PT ABD DISTENDED, SEMI SOFT/FIRM. NORMOACTIVE BT's. G-TUBE CLAMPED. PLAN TO INITIATE TONIGHT's TF WHEN PT BACK IN BED PER PT MOTHER/CAREGIVER REQUEST. C-TUBE CLAMPED, PT MOTHER/CAREGIVER MANAGING FLUSHES. SUPRAPUBIC CATH DRAINING CLEAR YELLOW URINE. PT MOTHER REPORTS "HIS URINE HAS BEEN THE CLEAREST I'VE EVER SEEN IT TODAY. IT WAS COMPLETELY CLEAR EARLIER TODAY." GENERAL EDEMA NOTED TO BE IMPROVED. BILAT ANKLES/FEET CONTINUE TO BE SWOLLEN, ELEVATED IN W.C. ON PILLOW. PT MOTHER REPORST OVERALL IMPROVEMENT IN PT STATUS. WILL CONTINUE TO MONITOR & PROVIDE CARE.
--- NOTE | 2020-07-16 06:55 | NUR ---
SHIFT SUMMARY NO CHANGES THIS SHIFT. PT MOTHER/CAREGIVER AT BEDSIDE T/O NIGHT. FIRST PORTION OF TF COMPLETE @ APPROX 0500 THIS AM, 2ND PORTION TO BE INITIATED AFTER 3 HR BREAK. PT TOLERATING WELL. NO EVENTS OVER NIGHT.
[2020-07-16 09:58] LABS: Magnesium, Blood 2.2 mg/dL (1.6-2.4)
[2020-07-16 09:59] LABS: Anion Gap 5 mmol/L (6-16); Blood Urea Nitrogen 7 mg/dL (8-24); Bun/Creatinine Ratio 20.6 (12.0-20.0); CO2, Blood 32 mmol/L (21-32); Calcium, Blood 8.7 mg/dL (8.5-10.1); Chloride, Blood 103 mmol/L (98-108); Creatinine, Blood 0.34 mg/dL (0.60-1.20); Glomerular Filtration Rate >60 (60-); Glucose, Blood 96 mg/dL (70-99); Potassium, Blood 3.6 mmol/L (3.5-5.5); Sodium, Blood 140 mmol/L (136-145)
--- NOTE | 2020-07-16 11:41 | NUR ---
AM NOTE PT ALERT AND ORIENTED X 4. SPO2 IN 90'S VIA TRACH COLLAR, HOME VENT W/ 2L BLEED IN. IN PAST PT ONLY ON VENT AT NIGHT. PT ON VENT 24/7 FOR PAST FEW WEEKS. PT MOTHER MALLIKA AT BEDISED AND STATED SHE IS EAGER TO GET PT HOME TO START INTERMITTENTLY TAKING PT OFF OF VENT. THIS AM THIS STUDENT ALONG WITH MEDICAL SUPPORT SPECIALIST DRESSED PT AND ASSISTED MOTHER IN AMBULATING PT TO CHAIR. PT NOW IN CHAIR, TUBE FEEDING IN PROGRESS, R IV IS PATENT AND INFUSING. NO OTHER ACUTE CHANGES NOTED. WILL CONTINUE TO MONITOR THROUGHOUT SHIFT.
[2020-07-16] MEDS ORDERED: FEROSUL220 MG/51 PO (12:36)
[2020-07-16] MEDS ORDERED: LEVAQUIN PO (12:48)
[2020-07-16] MEDS ORDERED: [UNRECOGNIZED DRUG - CODE] IV (12:50)
--- NOTE | 2020-07-16 13:47 | NUR ---
DISCHARGE PAPERWORK REVIEWED WITH PT'S MOTHER AT BEDSIDE INCLUDING NEW PRESCRIPTIONS, FULL MEDICATION LIST AND FOLLOW UP APPOINTMENTS. PT'S MOTHER HAS NO QUESTIONS OR CONCERN AT THIS TIME. PT'S MOTHER STATES THAT THE IV ANTIBIOTICS PRESCRIBED FOR THE PT ARE ALREADY AT THEIR HOME. ALL BELONGINGS TO BE SENT HOME WITH PT. NO FURTHER DISCHARGE NEEDS IDENTIFIED AT THIS TIME.
--- NOTE | 2020-07-16 15:52 | NUR ---
THIS RN HAS REVIEWED THIS NURSING STUDENTS CHARTING AND DOCUMENTATION AND IS IN AGREEMENT. PT NOTED "A LITTLE" BIT OF NAUSEA THIS AM, DENIED NEEDS FOR MEDICATIONS, STATES FEELING BETTER APPROX AN HOUR LATER. TUBE FEEDING STARTED. VSS. NO OTHER ACUTE CHAGNES NOTED. PT LEFT WITH CAREGIVER AT 1355. PLANS TO CONTINUE IV ANTIBITOICS AT HOME, WITH MOTHER ADMINISTERING THEM.
== END 2020-07-16 13:55 | disposition home or self-care (01) | DRG 208 ==
LOC: PCU 14:27 → ENPENDDIS 07-16 11:52 → PCU 07-16 13:55
PROVIDERS: Internal Medicine; Internal Medicine Critical Care Medicine; Internal Medicine Gastroenterology; ADMIT Student in an Organized Health Care Education/Training Program
PROC: 0BC18ZZ Extirpation of Matter from Trachea, Via Natural or Artificial Opening Endoscopic (ICD-10-PCS; 2020-07-11)
PROC: 0W9B3ZZ Drainage of Left Pleural Cavity, Percutaneous Approach (ICD-10-PCS; principal; 2020-07-12)
PROC: 5A1945Z Respiratory Ventilation, 24-96 Consecutive Hours (ICD-10-PCS; 2020-07-12)
DX: J69.0 Pneumonitis due to inhalation of food and vomit (principal); J96.21 Acute and chronic respiratory failure with hypoxia; G82.50 Quadriplegia, unspecified; I31.3 Pericardial effusion (noninflammatory); N39.0 Urinary tract infection, site not specified; J90 Pleural effusion, not elsewhere classified; D50.9 Iron deficiency anemia, unspecified; F32.9 Major depressive disorder, single episode, unspecified; B96.5 Pseudomonas (aeruginosa) (mallei) (pseudomallei) as the cause of diseases classified elsewhere; Z88.2 Allergy status to sulfonamides; Z88.5 Allergy status to narcotic agent; Z91.040 Latex allergy status; Z87.442 Personal history of urinary calculi; Z90.49 Acquired absence of other specified parts of digestive tract; Z98.890 Other specified postprocedural states; Z79.899 Other long term (current) drug therapy; Z20.822 Contact with and (suspected) exposure to COVID-19; Z93.0 Tracheostomy status
CPT/HCPCS: 0241U; 31720; 32555; 71045; 71250; 74177; 80048; 80053; 82465; 82945; 83605; 83615; 83735; 83986; 84157; 85025; 85027; 85610; 85730; 87040; 87070; 87077; 87086; 87186; 87205; 89051; 92526; 92610; 94640; 94762; 96374; 96375; 96376; A9270; G0378; G0379; J1940; J1956; J2405; J2543; J7030; J7050; Q9967

== ENCOUNTER 2020-07-23 07:22 | Inpatient (IN) | payer OTHER ==
[~2020-07-23] VITALS: Ht 122 cm; Wt 42.2 kg
[~2020-07-23 07:22] MED LIST changes: +FEROSUL220 MG/51 PO; +LEVAQUIN PO; +[UNRECOGNIZED DRUG - CODE] IV
[2020-07-23 07:59] LABS: Source, Urine Catheter
[2020-07-23 08:03] LABS: Bilirubin, Urine Neg (Neg); Blood, Urine 5+ (Neg); Glucose Qualitative, Urine Neg (Neg); Ketones, Urine Neg (Neg); Leukocyte Esterase, Urine 3+ (Neg); Nitrite, Urine Pos (Neg); Protein, Urine 1+ (Neg); Urobilinogen, Urine NORM (Normal)
[2020-07-23 08:13] LABS: Appearance, Urine Hazy (Clear); Color, Urine Yellow (P-Yellow)
[2020-07-23 08:14] LABS: Amorphous Light (0-Heavy); Bacteria Few /hpf; Mucus Light (0-Heavy); Squamous Epithelial Cells Few /hpf (Few)
[2020-07-23 08:15] LABS: Granular Casts Rare /lpf (0); Hyaline Casts 0-2 /lpf (0-2)
[2020-07-23 08:17] LABS: BASOPHILS ABSOLUTE AUTO 0.02 K/mm3 (0.00-0.23); BASOPHILS PERCENT AUTO 0 % (0-2); EOSINOPHILS ABSOLUTE AUTO 0.12 K/mm3 (0.00-0.68); EOSINOPHILS PERCENT AUTO 2 % (0-6); Hemoglobin 12.9 g/dL (13.5-17.5); IMMATURE GRAN ABSOLUTE AUTO 0.13 K/mm3 (0.00-0.10); IMMATURE GRAN PERCENT AUTO 2 % (0-1); LYMPHOCYTES ABSOLUTE AUTO 1.37 K/mm3 (0.84-5.20); LYMPHOCYTES PERCENT AUTO 23 % (21-46); MONOCYTES ABSOLUTE AUTO 0.47 K/mm3 (0.16-1.47); MONOCYTES PERCENT AUTO 8 % (4-13); Mean Corpuscular HGB 27.4 pg (26.0-34.0); Mean Corpuscular HGB Conc 31.5 g/dL (31.5-36.5); Mean Corpuscular Volume 87 fL (80-100); Mean Platelet Volume 9.3 fL (9.1-12.4); NEUTROPHILS PERCENT AUTO 65 % (41-73); Platelet Count 249 K/mm3 (150-400); RDW Coefficient Variation 16.9 % (11.7-14.2); RDW Standard Deviation 52.8 fL (35.1-46.3); White Blood Cell Count 6.01 K/mm3 (4.00-11.30)
[2020-07-23 08:33] LABS: Alanine Aminotransfer (ALT/SGP 31 U/L (12-78); Albumin, Blood 3.5 g/dL (3.4-5.0); Albumin/Globulin Ratio 0.7 (0.8-1.8); Alk Phos 131 U/L (50-136); Anion Gap 5 mmol/L (6-16); Aspartate Aminotrans (AST/SGOT 14 U/L (12-37); Bilirubin, Total 0.2 mg/dL (0.1-1.0); Blood Urea Nitrogen 18 mg/dL (8-24); Bun/Creatinine Ratio 50.8 (12.0-20.0); CO2, Blood 28 mmol/L (21-32); Calcium, Blood 9.6 mg/dL (8.5-10.1); Chloride, Blood 102 mmol/L (98-108); Creatinine, Blood 0.35 mg/dL (0.60-1.20); Globulin, Blood 4.9 g/dL (2.2-4.0); Glomerular Filtration Rate >60 (60-); Glucose, Blood 112 mg/dL (70-99); Potassium, Blood 3.9 mmol/L (3.5-5.5); Sodium, Blood 135 mmol/L (136-145); Total Protein, Blood 8.4 g/dL (6.4-8.2)
--- NOTE | 2020-07-23 14:00 | NUR ---
Patient arrived via gurney from ER, he was a two person slide transfer. He came on home vent SIMV mode 14, 400, PS 12, PEEP 4, and sats 96%. Patient has 2L O2 bleed in to vent. Patient has 22ga IV in right hand, dressing intact and site WNL's. Patient has 4Fr shiley trach, that is to be changed to 6Fr today at 1730. Patient has Peg tube to upper quad. He hassupra pubic cath draining to gravity light rosina urine. Mother at bedside and is suctioning trach and ST doing oral care prior to going to head CT. Patient is able to communicate with mother and minimal to staff. Dr Vazquez in with patient doing assessment.
[2020-07-23 15:26] LABS: Base Excess Venous 3.6 mmol/L; Bicarbonate Venous 26.7 mmol/L (24.0-30.0); PCO2 Venous 41.1 mmHg (38-42); PO2 Venous 39.2 mmHg (38-42); pH Blood Venous 7.44 (7.34-7.37)
--- NOTE | 2020-07-23 16:00 | NUR ---
Patient went to CT and after reading is going to be transferred to [facility]. Echo done. CN placed 20/8 Powerlide to [facility] and [facility] sent. He continues on same home vent. He is afebrile at 98.2 degrees. Trach change out postponed with bronch and thoracentesis. Patient resting. Dr Vazquez spoke with family and patient.
--- NOTE | 2020-07-23 16:18 | NUR ---
Spiritual care note: Provided gentle career placement services counselor and prayer to [place] and his tearful mother. These interventions were well received. Keegan is being transferred to [facility] this afternoon. I will remain available.
[2020-07-23 17:36] LABS: SARS-Cov-2 (COVID-19) PCR, MMC NEGATIVE (NEGATIVE)
--- NOTE | 2020-07-23 18:00 | NUR ---
Patient has been resting with parents/caregiver at bedside. Gave 500 ml NS bolus then 100 ml/hr. Awaiting bed at [facility]. He remains on earlier home vent settings and sats 93%. Mother has been doing trach suctioning and oral care. VSS, See EMR.
--- NOTE | 2020-07-23 20:09 | NUR ---
REPORT CALLED BY Sayda BULLOCK RN. TRANSPORT CONFIRMED, PT TRANSPORTING TO [facility], 7NSI, RM 9. MOTHER TO TRAVEL W PT.
--- NOTE | 2020-07-23 20:53 | NUR ---
PT DISCHARGED BY [facility]. W MOTHER, HOME VENT. PT FATHER CAME AND TOOK WHEELCHAIR AND REMAINING PERSONAL BELONGINGS.
== END 2020-07-23 20:35 | disposition short-term general hospital (02) | DRG 205 ==
LOC: ER 07:22 → ICUW 13:10 → ICUE 13:48
PROVIDERS: Emergency Medicine; Internal Medicine Critical Care Medicine; ADMIT Family Medicine
DX: T17.590A Other foreign object in bronchus causing asphyxiation, initial encounter (principal); J96.21 Acute and chronic respiratory failure with hypoxia; G92 Toxic encephalopathy; R53.2 Functional quadriplegia; I31.3 Pericardial effusion (noninflammatory); J90 Pleural effusion, not elsewhere classified; R18.8 Other ascites; E44.0 Moderate protein-calorie malnutrition; G91.9 Hydrocephalus, unspecified; Z20.822 Contact with and (suspected) exposure to COVID-19; T85.890A Other specified complication of nervous system prosthetic devices, implants and grafts, initial encounter; N20.0 Calculus of kidney; N21.0 Calculus in bladder; R82.71 Bacteriuria; H81.4 Vertigo of central origin; E11.9 Type 2 diabetes mellitus without complications; J45.909 Unspecified asthma, uncomplicated; F32.9 Major depressive disorder, single episode, unspecified; M81.0 Age-related osteoporosis without current pathological fracture; D64.9 Anemia, unspecified; Z96.0 Presence of urogenital implants; Z93.1 Gastrostomy status; Q05.9 Spina bifida, unspecified; Z88.2 Allergy status to sulfonamides; Z93.0 Tracheostomy status; Z88.5 Allergy status to narcotic agent; Z91.040 Latex allergy status; Z87.01 Personal history of pneumonia (recurrent); Z79.899 Other long term (current) drug therapy; Z98.890 Other specified postprocedural states; Y75.1 Therapeutic (nonsurgical) and rehabilitative neurological devices associated with adverse incidents
CPT/HCPCS: 70450; 71045; 71250; 80053; 81001; 82803; 83605; 85025; 87040; 87077; 87086; 87106; 87186; 92610; 93308; 93321; 94640; 99285-25; C1751; J2543; J7030; J7040; U0004

== ENCOUNTER → 2020-10-11 | Outpatient (CLI) | payer OTHER ==
[~2020-10-11] MED LIST changes: +CEFEPIME HCL2 G1 IV; +POTA20LUD PT
[2020-10-11 11:02] LABS: Source, Urine Catheter
[2020-10-11 12:45] LABS: Appearance, Urine Turbid (Clear); Bilirubin, Urine Neg (Neg); Blood, Urine 5+ (Neg); Color, Urine Yellow (P-Yellow); Glucose Qualitative, Urine Neg (Neg); Ketones, Urine Neg (Neg); Leukocyte Esterase, Urine 3+ (Neg); Nitrite, Urine Pos (Neg); Protein, Urine 3+ (Neg); Specific Gravity, Urine 1.015 (1.003-1.022); Urobilinogen, Urine NORM (Normal)
[2020-10-11 13:01] LABS: Bacteria Many /hpf; Red Blood Cells, Urine 50-100 /hpf (0-2); Squamous Epithelial Cells Mod /hpf (Few); White Blood Cells, Urine TNTC /hpf (0-5)
== END ==
LOC: LAB SHORT 09:50 → LAB 09:50
PROVIDERS: Student in an Organized Health Care Education/Training Program
DX: R30.9 Painful micturition, unspecified (principal); Z88.2 Allergy status to sulfonamides; Z88.5 Allergy status to narcotic agent; Z91.040 Latex allergy status
CPT/HCPCS: 81001; 87086

== ENCOUNTER 2020-11-18 08:57 | Inpatient (IN) | payer OTHER ==
[~2020-11-18] VITALS: Ht 147.3 cm; Wt 39.9 kg
[~2020-11-18 08:57] MED LIST changes: -CEFEPIME HCL2 G1 IV; -POTA20LUD PT
[2020-11-18 11:27] LABS: Source, Urine Urostomy Bag
[2020-11-18 11:31] LABS: BASOPHILS ABSOLUTE AUTO 0.05 K/mm3 (0.00-0.23); BASOPHILS PERCENT AUTO 0 % (0-2); EOSINOPHILS PERCENT AUTO 0 % (0-6); Hematocrit 50.4 % (37.0-53.0); Hemoglobin 16.7 g/dL (13.5-17.5); IMMATURE GRAN ABSOLUTE AUTO 0.09 K/mm3 (0.00-0.10); IMMATURE GRAN PERCENT AUTO 1 % (0-1); LYMPHOCYTES PERCENT AUTO 7 % (21-46); MONOCYTES PERCENT AUTO 4 % (4-13); Mean Corpuscular HGB 27.6 pg (26.0-34.0); Mean Corpuscular HGB Conc 33.1 g/dL (31.5-36.5); Mean Corpuscular Volume 83 fL (80-100); Mean Platelet Volume 9.7 fL (9.1-12.4); NEUTROPHILS ABSOLUTE AUTO 17.04 K/mm3 (1.96-9.15); NEUTROPHILS PERCENT AUTO 88 % (41-73); Platelet Count 259 K/mm3 (150-400); RDW Coefficient Variation 13.9 % (11.7-14.2); RDW Standard Deviation 42.1 fL (35.1-46.3); Red Blood Cell Count 6.06 M/mm3 (4.30-5.90); White Blood Cell Count 19.38 K/mm3 (4.00-11.30)
[2020-11-18 11:42] LABS: Appearance, Urine Hazy (Clear); Bilirubin, Urine Neg (Neg); Blood, Urine 5+ (Neg); Color, Urine Yellow (P-Yellow); Glucose Qualitative, Urine Neg (Neg); Ketones, Urine Neg (Neg); Leukocyte Esterase, Urine 3+ (Neg); Nitrite, Urine Neg (Neg); Protein, Urine 3+ (Neg); Specific Gravity, Urine 1.005 (1.003-1.022); Urobilinogen, Urine NORM (Normal)
[2020-11-18 11:50] LABS: Alanine Aminotransfer (ALT/SGP 260 U/L (12-78); Albumin, Blood 3.8 g/dL (3.4-5.0); Albumin/Globulin Ratio 0.7 (0.8-1.8); Alk Phos 220 U/L (50-136); Anion Gap 10 mmol/L (6-16); Aspartate Aminotrans (AST/SGOT 141 U/L (12-37); Bilirubin, Total 0.4 mg/dL (0.1-1.0); Blood Urea Nitrogen 23 mg/dL (8-24); CO2, Blood 27 mmol/L (21-32); Calcium, Blood 9.6 mg/dL (8.5-10.1); Chloride, Blood 101 mmol/L (98-108); Creatinine, Blood 0.41 mg/dL (0.60-1.20); Globulin, Blood 5.4 g/dL (2.2-4.0); Glomerular Filtration Rate >60 (60-); Glucose, Blood 109 mg/dL (70-99); Potassium, Blood 3.6 mmol/L (3.5-5.5); Sodium, Blood 138 mmol/L (136-145); Total Protein, Blood 9.2 g/dL (6.4-8.2)
[2020-11-18 12:09] LABS: White Blood Cells, Urine TNTC /hpf (0-5)
[2020-11-18 12:11] LABS: Bacteria Many /hpf; Red Blood Cells, Urine TNTC /hpf (0-2); Squamous Epithelial Cells Rare /hpf (Few)
[2020-11-18 12:49] LABS: Adenovirus Not Detected (NOT DETECT); Bordetella pertussis Not Detected (NOT DETECT); Chlamydophila pneumoniae Not Detected (NOT DETECT); Coronavirus 229E Not Detected (NOT DETECT); Coronavirus HKU1 Not Detected (NOT DETECT); Coronavirus NL63 Not Detected (NOT DETECT); Coronavirus OC43 Not Detected (NOT DETECT); Human Metapneumovirus Not Detected (NOT DETECT); Human Rhinovirus/Enterovirus Not Detected (NOT DETECT); Influenza A/2009-H1 Not Detected (NOT DETECT); Influenza A/H1 Not Detected (NOT DETECT); Influenza A/H3 Not Detected (NOT DETECT); Influenza B Not Detected (NOT DETECT); Mycoplasma pneumoniae Not Detected (NOT DETECT); Parainfluenza Virus 1 Not Detected (NOT DETECT); Parainfluenza Virus 2 Not Detected (NOT DETECT); Parainfluenza Virus 3 Not Detected (NOT DETECT); Parainfluenza Virus 4 Not Detected (NOT DETECT); Respiratory Syncytial Virus Not Detected (NOT DETECT); SARS-Cov-2 (COVID-19), BioFire Not Detected (NOT DETECT)
--- NOTE | 2020-11-18 19:30 | NUR ---
ADMIT NOTE RECIEVED REPORT FROM CHARLY OLVERA IN ED, PT TO ROOM VIA HOME WHEELCHAIR AT 1800. REFUSING TO GET IN TO BED, UNABLE TO COMPLETE FULL SKIN ASSESSMENT AT THIS TIME. PT'S MOTHER AT BEDSIDE AND IS SPENDING THE NIGHT A CAREGIVER. PT A&O; CALM AND COOPERATIVE WITH CARE. PT HAS TRACH WITH HOME VENT, 2L BLEED IN, SPO2 >90%. PT DENIES PAIN, CHEST PAIN, NAUSEA AND DIZZINESS. PT HAS SUPRAPUBIC CATH LAST CHANGED APPROX 1 WEEK AGO PER MOTHER AT BEDSIDE. PT HAS TUBE FEEDING AT BEDSIDE, PLANS TO BRING IN HOME PUMP AND TUBING. VSS. NO OTHER ACUTE CHANGES NOTED DURING SHIFT. REPORT GIVEN TO ONCOMING RN.
[2020-11-19 04:03] LABS: BASOPHILS ABSOLUTE AUTO 0.03 K/mm3 (0.00-0.23); BASOPHILS PERCENT AUTO 0 % (0-2); EOSINOPHILS ABSOLUTE AUTO 0.07 K/mm3 (0.00-0.68); EOSINOPHILS PERCENT AUTO 1 % (0-6); Hematocrit 38.4 % (37.0-53.0); IMMATURE GRAN ABSOLUTE AUTO 0.04 K/mm3 (0.00-0.10); IMMATURE GRAN PERCENT AUTO 0 % (0-1); LYMPHOCYTES ABSOLUTE AUTO 1.76 K/mm3 (0.84-5.20); LYMPHOCYTES PERCENT AUTO 16 % (21-46); MONOCYTES ABSOLUTE AUTO 0.73 K/mm3 (0.16-1.47); MONOCYTES PERCENT AUTO 7 % (4-13); Mean Corpuscular HGB 28.3 pg (26.0-34.0); Mean Corpuscular HGB Conc 33.9 g/dL (31.5-36.5); Mean Corpuscular Volume 84 fL (80-100); Mean Platelet Volume 9.9 fL (9.1-12.4); NEUTROPHILS PERCENT AUTO 77 % (41-73); Platelet Count 211 K/mm3 (150-400); RDW Coefficient Variation 14.1 % (11.7-14.2); RDW Standard Deviation 42.5 fL (35.1-46.3); White Blood Cell Count 11.23 K/mm3 (4.00-11.30)
[2020-11-19 04:30] LABS: Anion Gap 3 mmol/L (6-16); Blood Urea Nitrogen 23 mg/dL (8-24); Bun/Creatinine Ratio 65.9 (12.0-20.0); CO2, Blood 28 mmol/L (21-32); Calcium, Blood 8.6 mg/dL (8.5-10.1); Chloride, Blood 109 mmol/L (98-108); Creatinine, Blood 0.35 mg/dL (0.60-1.20); Glomerular Filtration Rate >60 (60-); Glucose, Blood 164 mg/dL (70-99); Potassium, Blood 2.9 mmol/L (3.5-5.5); Sodium, Blood 140 mmol/L (136-145)
--- NOTE | 2020-11-19 05:17 | NUR ---
CHIEF ACCOUNTING OFFICER SUMMARY NO ACUTE CHANGES. PT AAOX4 AND PLEASANT. MAKES NEEDS KNOWN AND CAN COMMUNICATE WELL, DOES HAVE SOME BASELINE GARBLED SPEECH. PT HAS HOME TRACH VENT WITH 2L O2 BLEED IN SATTING HIGH 90'S. PT RECIEVING IV CEFEPIME AFTER NEW POWERGLIDE PLACED BY OUTCOMES MANAGER, SHADI. PT'S MOTHER AT BEDSIDE THROUGH THE NIGHT, SHE IS MAIN CAREGIVER AND HAS TAKEN CARE OF MOST ADL'S FOR PT INCLUDING SETTING UP HIS TUBE FEEDINGS AND SETTING UP HIS HOME O2 MONITOR AT BEDSIDE. PT HAS SLEPT MOST OF THE NIGHT WITH NO COMPLAINTS. VSS, WILL CONTINUE TO MONITOR.
--- NOTE | 2020-11-19 08:57 | NUR ---
ASSUMED CARE AT 0700. PARENT AT BEDSIDE ASSISTING WITH CARE. PT ALERT, ABLE TO ANSWER QUESTIONS ALTHOUGH SPEECH IS DIFFICULT TO UNDERSTAND AT BASELINE. HOME VENT IN USE WITH 2L O2. CHRONIC SUPRAPUBIC CATH IN PLACE WITH DARK YELLOW URINE. PEG TUBE IN PLACE WITH FEEDINGS INFUSING PER HOME REGIMIN. MOTHER IS CAREGIVER AND IS MANAGING TUBE FEEDS. POTASSIUM WAS LOW THIS MORNING; FIRST DOSE KCL STARTED PER ORDERS.
--- NOTE | 2020-11-19 17:36 | NUR ---
UPDATE 11/19/20: PT. HAS EXTENSIVE MEDICAL HISTORY SPINA BIFIDA/QUADRIPLEGIA WITH A WASTE SALVAGER SHUNT THAT WAS RECENTLY REPLACED. TRACHEOSTOMY WITH VENT DEPENDENCE AND SUPRAPUBIC CATHETER. PATIENT'S MOTHER IS HIS PRIMARY CAREGIVER. PLAN FOR PT. TO RETURN HOME WITH MOTHER AT TIME OF DISCHARGE. I WILL CONTACT HIS MOTHER MALLIKA TOMORROW TO BEGIN TALKING ABOUT CARE COORDINATION AND DETERMINE IF THERE WILL BE ANY ADDITIONAL NEEDS. AT THIS TIME, ANTICIPATED NEEDS TO INCLUDE HOSPITAL F/U WITHIN 5-7 DAYS.
--- NOTE | 2020-11-19 17:40 | NUR ---
SHIFT SUMMARY PT HAS BEEN A/O, DIFFICULT TO UNDERSTAND WHICH IS BASELINE FOR HIM. MOTHER WHO IS CAREGIVER HAS BEEN AT BEDSIDE AND IS HELPING WITH CARE. PT IS W/C BOUND AT BASELINE. HAS CHRONIC SUPRAPUBIC CATH AND TRACH WITH 2L O2 NC AT BASELINE. HE HAS BEEN UP IN WHEELCHAIR T/O THE SHIFT TODAY. PLAN IS TO DC HOME TOMORROW WITH IV ABX.
--- NOTE | 2020-11-20 02:52 | NUR ---
SHIFT SUMMARY: SEPSIS PATIENT IS ALERT AND ORIENTED X4 THOUGH HAS GARBLED SPEECH WHICH IS BASELINE FOR HIM. MOTHER WHO IS ALSO PULMONOLOGIST IS AT BEDSIDE AND AIDES WITH PATIENT CARE. HE IS WHEELCHAIR BOUND AT BASELINE. HE ALSO HAS SUPRAPUBIC CATH WITH URINE OUTPUT. HE ALSO HAS A TRACH WITH 2L OXYGEN NC AT BASELINE. PATIENT IS CURRENTLY LAYING IN BED BUT WAS IN HIS WHEELCHAIR EARLIER IN THE SHIFT. PATIENT HAS HIS MEDS CRUSHED FOR HIS PEG TUBE. POWERGLIDE IN ZENA IS WNL. CALL LIGHT WITHIN REACH. MOTHER USES CALL LIGHT FOR HIS AND HER NEEDS. THE PLAN IS TO DISCHARGE HOME LATER TODAY.
[2020-11-20 04:24] LABS: BASOPHILS ABSOLUTE AUTO 0.02 K/mm3 (0.00-0.23); BASOPHILS PERCENT AUTO 0 % (0-2); EOSINOPHILS ABSOLUTE AUTO 0.25 K/mm3 (0.00-0.68); EOSINOPHILS PERCENT AUTO 4 % (0-6); Hematocrit 35.2 % (37.0-53.0); Hemoglobin 11.6 g/dL (13.5-17.5); IMMATURE GRAN ABSOLUTE AUTO 0.03 K/mm3 (0.00-0.10); IMMATURE GRAN PERCENT AUTO 0 % (0-1); LYMPHOCYTES ABSOLUTE AUTO 1.78 K/mm3 (0.84-5.20); LYMPHOCYTES PERCENT AUTO 25 % (21-46); MONOCYTES PERCENT AUTO 6 % (4-13); Mean Corpuscular Volume 85 fL (80-100); Mean Platelet Volume 9.9 fL (9.1-12.4); NEUTROPHILS ABSOLUTE AUTO 4.69 K/mm3 (1.96-9.15); NEUTROPHILS PERCENT AUTO 65 % (41-73); Platelet Count 173 K/mm3 (150-400); RDW Coefficient Variation 14.5 % (11.7-14.2); RDW Standard Deviation 44.9 fL (35.1-46.3); Red Blood Cell Count 4.15 M/mm3 (4.30-5.90); White Blood Cell Count 7.17 K/mm3 (4.00-11.30)
[2020-11-20 04:52] LABS: Anion Gap 4 mmol/L (6-16); Blood Urea Nitrogen 13 mg/dL (8-24); Bun/Creatinine Ratio 45.9 (12.0-20.0); CO2, Blood 24 mmol/L (21-32); Calcium, Blood 8.2 mg/dL (8.5-10.1); Chloride, Blood 107 mmol/L (98-108); Creatinine, Blood 0.28 mg/dL (0.60-1.20); Glomerular Filtration Rate >60 (60-); Glucose, Blood 147 mg/dL (70-99); Potassium, Blood 3.6 mmol/L (3.5-5.5); Sodium, Blood 135 mmol/L (136-145)
--- NOTE | 2020-11-20 07:21 | NUR ---
pt sleeping mom wakes to verbal stimuli req to sleep longer asked her to call me
--- NOTE | 2020-11-20 09:09 | NUR ---
Update 11/20/20: Per discussion with Dr. Oquendo this am, pt. potentially appropriate for discharge today. Pt. will need IV Cefepime x 12 more days Q12 50mL/HR. I am hoping that we will be able to send the Rx. locally. Left message for staff this am at [facility] requesting return call. Plan to contact additional pharmacies and send off to [place] [facility] if not available locally.
--- NOTE | 2020-11-20 09:15 | NUR ---
dr reynoso by to see pt plan for home iv abx if avail will d/c if not will stay
--- NOTE | 2020-11-20 10:32 | NUR ---
pt up in his wc
--- NOTE | 2020-11-20 12:15 | NUR ---
po kcl given per peg tube with 60 ml h20 pt up in his wc still waiting to hear about abx outpt
--- NOTE | 2020-11-20 13:47 | NUR ---
pt watching tv
--- NOTE | 2020-11-20 17:45 | NUR ---
pt does not take lovenox pt's dad brought in his other peg tube pump cord his was not working labs ordered for am they did not get order from [place] for atc but [facility] for home iv abx
--- NOTE | 2020-11-21 06:33 | NUR ---
LYING IN SUPINE POSITION WITH EYES CLOSED WITH PILLOWS TO SUPPORT BONY PROMINENCES. PRN FLEETS ENEMA GIVE BY MOM PER HER REQUEST. OVERNIGHT FEEDING TO LUQ PEG TUBE IN PROGRESS, TOLERATING WELL. UNABLE TO DRAW FROM POWERGLIDE FOR AM LABS. URINE CLEARING UP AND FAMILY IS EXCITED TO GO HOME TODAY. DENIES FURTHER NEEDS OR WANTS AT THIS TIME. SAFETY MEASURES IN PLACE. WILL CONTINUE TO MONITOR AND GIVE HAND OFF TO ONCOMING SHIFT USING SBAR DURING BEDSIDE REORT.
[2020-11-21] MEDS ORDERED: CEFEPIME HCL2 G1 IV (09:51)
[2020-11-21] MEDS ORDERED: POTA20LUD PT (09:54)
--- NOTE | 2020-11-21 11:20 | NUR ---
DISCHARGE PT AND FAMILY PROVIDED WITH WRITTEN AND VERBAL DISCHARGE INSTRUCTIONS. DRESSING CHANGE SUPPLIES PROVIDED FOR POWER GLIDE DRESSING CHANGE. PRESCRIPTIONS FAXED TO PT'S PHARMACY. FAMILY REPORTED ABX WOULD BE ARRIVING TODAY. VSS PRIOR TO DISCHARGE. PT ASSISTED OUT BY FAMILY.
== END 2020-11-21 10:45 | disposition home or self-care (01) | DRG 871 ==
LOC: ER 08:57 → ERHOLD 16:43 → SURS 17:36
PROVIDERS: Emergency Medicine; Emergency Medicine Emergency Medical Services; Family Medicine; ADMIT Internal Medicine
DX: A41.9 Sepsis, unspecified organism (principal); J96.21 Acute and chronic respiratory failure with hypoxia; G82.50 Quadriplegia, unspecified; Z99.11 Dependence on respirator [ventilator] status; N39.0 Urinary tract infection, site not specified; Z20.822 Contact with and (suspected) exposure to COVID-19; F32.9 Major depressive disorder, single episode, unspecified; K59.00 Constipation, unspecified; Z93.0 Tracheostomy status; Z88.2 Allergy status to sulfonamides; Z88.5 Allergy status to narcotic agent; Z91.040 Latex allergy status; Z79.899 Other long term (current) drug therapy
CPT/HCPCS: 0202U; 36415; 71045; 80048; 80053; 81001; 83605; 85025; 87040; 87086; 94762; 96374; 96376; 99285-25; A9270; C1751; J0692; J3480; J7030; J7050

== ENCOUNTER 2020-12-21 15:01 | Emergency (ER) | payer OTHER ==
[~2020-12-21] VITALS: Ht 147.3 cm; Wt 40.8 kg
[~2020-12-21 15:01] MED LIST changes: +CEFEPIME HCL2 G1 IV; +POTA20LUD PT
[2020-12-21] MEDS ORDERED: Q-Tussin100 MG/5 M PO (17:16)
[2020-12-21] MEDS ORDERED: Vibramycin100 MG PO (17:16)
== END 2020-12-21 17:26 | disposition home or self-care (01) ==
LOC: ER 15:01
DX: J06.9 Acute upper respiratory infection, unspecified (principal); Z88.2 Allergy status to sulfonamides; Z88.5 Allergy status to narcotic agent; Z91.040 Latex allergy status; Z79.899 Other long term (current) drug therapy
CPT/HCPCS: 71045; 99283-25

== ENCOUNTER 2021-01-07 04:54 | Day surgery (SDC) | payer OTHER ==
[~2021-01-07 04:54] MED LIST changes: +Q-Tussin100 MG/5 M PO; +Vibramycin100 MG PO
== END 2021-01-07 22:42 | disposition home or self-care (01) ==
LOC: WOUND 04:54
DX: L89.320 Pressure ulcer of left buttock, unstageable (principal); L89.153 Pressure ulcer of sacral region, stage 3; L89.152 Pressure ulcer of sacral region, stage 2
CPT/HCPCS: A9270; G0463

== ENCOUNTER 2021-01-14 01:49 | Day surgery (SDC) | payer OTHER | END 2021-01-14 22:58 | disposition home or self-care (01) | LOC: WOUND 01:49 | DX: L89.320 Pressure ulcer of left buttock, unstageable (principal); L89.153 Pressure ulcer of sacral region, stage 3; L89.142 Pressure ulcer of left lower back, stage 2 | CPT/HCPCS: A9270 ==

== ENCOUNTER 2021-02-10 09:06 | Day surgery (SDC) | payer OTHER ==
[~2021-02-10 09:06] MED LIST changes: +CEFD300 PO
== END 2021-02-10 22:52 | disposition home or self-care (01) ==
LOC: WOUND 09:06
DX: L89.324 Pressure ulcer of left buttock, stage 4 (principal); L89.153 Pressure ulcer of sacral region, stage 3; L89.142 Pressure ulcer of left lower back, stage 2
CPT/HCPCS: A9270

== ENCOUNTER 2021-02-17 04:19 | Day surgery (SDC) | payer OTHER | END 2021-02-17 12:00 | disposition home or self-care (01) | LOC: WOUND 04:19 | DX: L89.324 Pressure ulcer of left buttock, stage 4 (principal); L89.153 Pressure ulcer of sacral region, stage 3; L89.142 Pressure ulcer of left lower back, stage 2 | CPT/HCPCS: A9270 ==

== ENCOUNTER 2021-02-21 04:25 | Day surgery (SDC) | payer OTHER | END 2021-02-21 23:03 | disposition home or self-care (01) | LOC: WOUND 04:25 | DX: L89.142 Pressure ulcer of left lower back, stage 2 (principal); L89.153 Pressure ulcer of sacral region, stage 3 | CPT/HCPCS: A9270 ==

== ENCOUNTER 2021-02-24 04:38 | Day surgery (SDC) | payer OTHER | END 2021-02-24 22:50 | disposition home or self-care (01) | LOC: WOUND 04:38 | DX: L89.324 Pressure ulcer of left buttock, stage 4 (principal); L89.153 Pressure ulcer of sacral region, stage 3; L89.142 Pressure ulcer of left lower back, stage 2 | CPT/HCPCS: A9270 ==

== ENCOUNTER 2021-02-26 03:10 | Day surgery (SDC) | payer OTHER | END 2021-02-26 23:06 | disposition home or self-care (01) | LOC: WOUND 03:10 | DX: L89.142 Pressure ulcer of left lower back, stage 2 (principal); L89.153 Pressure ulcer of sacral region, stage 3 | CPT/HCPCS: A9270; G0463 ==

== ENCOUNTER 2021-03-17 09:22 | Day surgery (SDC) | payer OTHER | END 2021-03-17 23:19 | disposition home or self-care (01) | LOC: WOUND 09:22 | DX: L89.144 Pressure ulcer of left lower back, stage 4 (principal); J96.10 Chronic respiratory failure, unspecified whether with hypoxia or hypercapnia; Z93.0 Tracheostomy status; Z99.3 Dependence on wheelchair | CPT/HCPCS: A9270; G0463 ==

== ENCOUNTER 2021-04-07 03:25 | Day surgery (SDC) | payer OTHER | END 2021-04-07 23:29 | disposition home or self-care (01) | LOC: WOUND 03:25 | DX: L89.324 Pressure ulcer of left buttock, stage 4 (principal); L89.144 Pressure ulcer of left lower back, stage 4; J96.10 Chronic respiratory failure, unspecified whether with hypoxia or hypercapnia; Z93.0 Tracheostomy status; Z99.3 Dependence on wheelchair | CPT/HCPCS: G0463 ==

== ENCOUNTER 2021-04-21 03:14 | Day surgery (SDC) | payer OTHER | END 2021-04-21 23:26 | disposition home or self-care (01) | LOC: WOUND 03:14 | DX: L89.324 Pressure ulcer of left buttock, stage 4 (principal) | CPT/HCPCS: A9270; G0463 ==

== ENCOUNTER 2021-05-12 03:16 | Day surgery (SDC) | payer OTHER ==
[~2021-05-12 03:16] MED LIST changes: +AMOCLA250S PO; +AMOX-CLAV600 MG/51 PO
== END 2021-05-12 23:34 | disposition home or self-care (01) ==
LOC: WOUND 03:16
DX: L89.324 Pressure ulcer of left buttock, stage 4 (principal); L89.144 Pressure ulcer of left lower back, stage 4; Q05.9 Spina bifida, unspecified; Z99.3 Dependence on wheelchair; Z93.0 Tracheostomy status
CPT/HCPCS: A9270; G0463

== ENCOUNTER 2021-06-09 02:32 | Day surgery (SDC) | payer OTHER | END 2021-06-09 23:22 | disposition home or self-care (01) | LOC: WOUND 02:32 | DX: L89.144 Pressure ulcer of left lower back, stage 4 (principal) | CPT/HCPCS: A9270; G0463 ==

== ENCOUNTER 2021-07-07 01:18 | Day surgery (SDC) | payer OTHER | END 2021-07-07 23:06 | disposition home or self-care (01) | LOC: WOUND 01:18 | DX: L89.324 Pressure ulcer of left buttock, stage 4 (principal); J96.10 Chronic respiratory failure, unspecified whether with hypoxia or hypercapnia; Z93.0 Tracheostomy status | CPT/HCPCS: A9270 ==

== ENCOUNTER → 2021-08-13 | Outpatient (CLI) | payer OTHER ==
[~2021-08-13] MED LIST changes: +CEPH500 PO
== END | disposition home or self-care (01) ==
LOC: LAB SHORT 17:29 → LAB 17:29
DX: Z48.816 Encounter for surgical aftercare following surgery on the genitourinary system (principal); Z96.0 Presence of urogenital implants
CPT/HCPCS: 87077; 87086; 87186

== ENCOUNTER → 2022-01-16 | Outpatient (CLI) | payer OTHER ==
[2022-01-16 14:26] LABS: Source, Urine Voided
[2022-01-16 15:21] LABS: White Blood Cells, Urine TNTC /hpf (0-5)
[2022-01-16 15:24] LABS: Bacteria Many /hpf; Squamous Epithelial Cells Few /hpf (Few)
== END | disposition home or self-care (01) ==
LOC: LAB 14:23 → LAB SHORT 14:23 → LAB FUT 10-20 18:00
PROVIDERS: Urology
DX: N20.0 Calculus of kidney (principal); N39.0 Urinary tract infection, site not specified
CPT/HCPCS: 81015; 87077; 87086; 87186

== ENCOUNTER → 2022-03-31 | Outpatient (CLI) | payer OTHER | END | disposition home or self-care (01) | LOC: LAB 11:30 → LAB SHORT 11:30 | DX: N39.0 Urinary tract infection, site not specified (principal) | CPT/HCPCS: 87077; 87086; 87186 ==

== ENCOUNTER → 2022-09-24 | Outpatient (CLI) | payer OTHER ==
[~2022-09-24] MED LIST changes: +DOXY100 PO; +OXAYDO5 M1 PO
== END ==
LOC: LAB SHORT 17:22 → LAB 17:22
DX: N39.0 Urinary tract infection, site not specified (principal)
CPT/HCPCS: 87077; 87086; 87186

== ENCOUNTER 2022-10-20 09:35 | Inpatient (IN) | payer OTHER ==
[~2022-10-20] VITALS: Ht 149.9 cm; Wt 45.5 kg
[2022-10-20 10:22] LABS: Source, Urine Foley catheter
[2022-10-20 10:26] LABS: Appearance, Urine Cloudy (Clear); Bilirubin, Urine Neg (Neg); Blood, Urine 3+ (Neg); Color, Urine Yellow (P-Yellow); Glucose Qualitative, Urine 1+ (Neg); Ketones, Urine 1+ (Neg); Leukocyte Esterase, Urine 3+ (Neg); Nitrite, Urine Neg (Neg); Protein, Urine 2+ (Neg); Urobilinogen, Urine NORM (Normal)
[2022-10-20 10:40] LABS: Bacteria Many /hpf; Squamous Epithelial Cells Few /hpf (Few); White Blood Cells, Urine 50-100 /hpf (0-5)
[2022-10-20 11:16] LABS: BASOPHILS ABSOLUTE AUTO 0.03 K/mm3 (0.00-0.23); BASOPHILS PERCENT AUTO 0 % (0-2); EOSINOPHILS ABSOLUTE AUTO 0.02 K/mm3 (0.00-0.68); EOSINOPHILS PERCENT AUTO 0 % (0-6); Hemoglobin 11.7 g/dL (13.5-17.5); IMMATURE GRAN ABSOLUTE AUTO 0.23 K/mm3 (0.00-0.10); IMMATURE GRAN PERCENT AUTO 2 % (0-1); LYMPHOCYTES ABSOLUTE AUTO 0.68 K/mm3 (0.84-5.20); LYMPHOCYTES PERCENT AUTO 7 % (21-46); MONOCYTES ABSOLUTE AUTO 0.49 K/mm3 (0.16-1.47); MONOCYTES PERCENT AUTO 5 % (4-13); Mean Corpuscular HGB 28.3 pg (26.0-34.0); Mean Corpuscular HGB Conc 35.5 g/dL (31.5-36.5); Mean Corpuscular Volume 80 fL (80-100); NEUTROPHILS ABSOLUTE AUTO 8.56 K/mm3 (1.96-9.15); NEUTROPHILS PERCENT AUTO 86 % (41-73); RDW Coefficient Variation 13.2 % (11.7-14.2); RDW Standard Deviation 38.1 fL (35.1-46.3); Red Blood Cell Count 4.14 M/mm3 (4.30-5.90); White Blood Cell Count 10.01 K/mm3 (4.00-11.30)
[2022-10-20 11:26] LABS: Albumin, Blood 3.8 g/dL (3.4-5.0); Albumin/Globulin Ratio 0.9 (0.8-1.8); Bilirubin, Total 0.4 mg/dL (0.1-1.0); Bun/Creatinine Ratio 54.4 (12.0-20.0); Calcium, Blood 8.8 mg/dL (8.5-10.1); Creatinine, Blood 0.33 mg/dL (0.60-1.20); Globulin, Blood 4.4 g/dL (2.2-4.0); Potassium, Blood 2.8 mmol/L (3.5-5.5); Total Protein, Blood 8.2 g/dL (6.4-8.2)
[2022-10-20 11:45] LABS: Mean Platelet Volume 10.5 fL (9.1-12.4)
[2022-10-20 11:52] LABS: Base Excess Venous 4.9 mmol/L; Bicarbonate Venous 28.5 mmol/L (24.0-30.0); PCO2 Venous 41.3 mmHg (38-42); pH Blood Venous 7.45 (7.34-7.37)
[2022-10-20 12:02] LABS: Platelet Count 186 K/mm3 (150-400)
[2022-10-20] MEDS ORDERED: LORAZEPAM2 MG/1 M1 IV (14:04)
[2022-10-20 16:11] VITALS: BP 162/100
[2022-10-20] MEDS ORDERED: TEMAZEPAM1511 PO (16:18)
--- NOTE | 2022-10-20 17:58 | NUR ---
ADMISSION/SHIFT SUMMARY: PT ADMITTED TO PCU, ARRIVING APPROX 1600 TO ROOM. PT ARRIVES LETHARGIC, AROUSES BRIEFLY TO BEING MOVED TO BED OR TO GENERAL QUESTIONS, BUT THEN FALLS QUICKLY BACK TO SLEEP. PT NOT MOVING LIMBS, HX OF QUADRIPLEGIA. BRACE NOTED TO ZENA, PT's MOTHER STATES ARM IS BROKEN, PERIPHERAL PULSE STRONG AND SKIN WARM TO TOUCH. O2 SATS >92% ON 2 L/MIN VIA TRACH. SR/SB ON MONITOR W/NO SIGNS OF DISTRESS. G TUBE NOTED TO LUQ AND SUPRAPUBIC CATHETER SECURED AND IS DRAINING TO GRAVITY. IV FLUIDS AND ELECTROLYTE REPLACEMENT INFUSING PER ORDERS TO CLIVE. PT's MOTHER AT BEDSIDE AND ANSWERING QUESTIONS FOR PT's ADMISSION. AT THIS TIME PT IS RESTING QUIETLY IN ROOM. SUCTION SET UP AND NEXT TO BED, CALL LIGHT WITHIN REACH. WILL CONTINUE TO MONITOR AND TREAT ACCORDINGLY UNTIL CHANGE OF SHIFT.
[2022-10-20 19:37] LABS: Albumin, Blood 3.8 g/dL (3.4-5.0); Anion Gap 7 mmol/L (6-16); Blood Urea Nitrogen 14 mg/dL (8-24); Bun/Creatinine Ratio 67.3 (12.0-20.0); CO2, Blood 25 mmol/L (21-32); Calcium, Blood 8.7 mg/dL (8.5-10.1); Chloride, Blood 97 mmol/L (98-108); Creatinine, Blood 0.21 mg/dL (0.60-1.20); Glomerular Filtration Rate 169 (60-); Glucose, Blood 114 mg/dL (70-99); Potassium, Blood 4.6 mmol/L (3.5-5.5); Sodium, Blood 129 mmol/L (136-145)
[2022-10-20 20:30] VITALS: BP 141/90
[2022-10-21] VITALS (9 sets, daily range): BP systolic 134–180; BP diastolic 91–112
[2022-10-21 03:55] LABS: BASOPHILS ABSOLUTE AUTO 0.01 K/mm3 (0.00-0.23); BASOPHILS PERCENT AUTO 0 % (0-2); EOSINOPHILS ABSOLUTE AUTO 0.03 K/mm3 (0.00-0.68); EOSINOPHILS PERCENT AUTO 0 % (0-6); Hematocrit 32.9 % (37.0-53.0); Hemoglobin 11.5 g/dL (13.5-17.5); IMMATURE GRAN ABSOLUTE AUTO 0.08 K/mm3 (0.00-0.10); IMMATURE GRAN PERCENT AUTO 1 % (0-1); LYMPHOCYTES ABSOLUTE AUTO 0.81 K/mm3 (0.84-5.20); LYMPHOCYTES PERCENT AUTO 9 % (21-46); MONOCYTES ABSOLUTE AUTO 0.51 K/mm3 (0.16-1.47); MONOCYTES PERCENT AUTO 6 % (4-13); Mean Corpuscular Volume 80 fL (80-100); Mean Platelet Volume 9.9 fL (9.1-12.4); NEUTROPHILS ABSOLUTE AUTO 7.53 K/mm3 (1.96-9.15); NEUTROPHILS PERCENT AUTO 84 % (41-73); Platelet Count 191 K/mm3 (150-400); RDW Coefficient Variation 13.2 % (11.7-14.2); RDW Standard Deviation 38.2 fL (35.1-46.3); Red Blood Cell Count 4.11 M/mm3 (4.30-5.90); White Blood Cell Count 8.97 K/mm3 (4.00-11.30)
[2022-10-21 04:10] LABS: Magnesium, Blood 2.1 mg/dL (1.6-2.4)
[2022-10-21 04:11] LABS: Albumin, Blood 3.6 g/dL (3.4-5.0); Anion Gap 5 mmol/L (6-16); Blood Urea Nitrogen 12 mg/dL (8-24); Bun/Creatinine Ratio 46.7 (12.0-20.0); CO2, Blood 24 mmol/L (21-32); Calcium, Blood 8.5 mg/dL (8.5-10.1); Chloride, Blood 100 mmol/L (98-108); Creatinine, Blood 0.26 mg/dL (0.60-1.20); Glomerular Filtration Rate 158 (60-); Glucose, Blood 106 mg/dL (70-99); Phosphorus, Blood 1.8 mg/dL (2.5-4.9); Potassium, Blood 3.5 mmol/L (3.5-5.5); Sodium, Blood 129 mmol/L (136-145)
--- NOTE | 2022-10-21 06:54 | NUR ---
NOC SHIFT SUMMARY PT AWAKENS TO VOICE, LETHARGIC. VSS PER PT TREND. PUPILS UNEQUAL - MOM AT BEDSIDE STATES NORMAL FOR PT - DR. Olson NOTIFIED. NO NEW ORDERS. HOME VENT IN USE, PT WITH TRACH. NOT REQUIRING SUCTION OVERNIGHT. MOM REFUSING Q2 TURNS - EDUCATED ON IMPORTANCE. PT CHECKED FREQUENTLY FOR STOOL, SUPRAPUBIC CATHETER IN PLACE. WILL PASS ON TO DAY RN
--- NOTE | 2022-10-21 09:52 | NUR ---
PT EDUCATED ON IGNITION SOURCE, FIRE PREVENTION AND OXYGEN
--- NOTE | 2022-10-21 11:21 | NUR ---
UPDATE RT ASKED FOR VBG. CALL PLACED TO DR HAWLEY. ALSO NOTIFIED OF LOW PHOS W/ AM LABS. S W/ ORDERS FOR VBG AND K PHOS IV, SEE EMAR. LAB IN ROOM DRAWING VBG.
[2022-10-21 11:32] LABS: Base Excess Venous -1.6 mmol/L; Bicarbonate Venous 24.4 mmol/L (24.0-30.0); PCO2 Venous 25.1 mmHg (38-42)
[2022-10-21 11:33] LABS: pH Blood Venous 7.53 (7.34-7.37)
[2022-10-21 14:34] LABS: Osmolality, Serum 274 mos/KG (275-300)
[2022-10-21 14:35] LABS: Uric Acid, Blood 3.7 mg/dL (3.5-7.2)
[2022-10-21 14:39] LABS: Albumin, Blood 3.8 g/dL (3.4-5.0); Anion Gap 10 mmol/L (6-16); Blood Urea Nitrogen 11 mg/dL (8-24); Bun/Creatinine Ratio 47.6 (12.0-20.0); CO2, Blood 22 mmol/L (21-32); Calcium, Blood 8.5 mg/dL (8.5-10.1); Chloride, Blood 101 mmol/L (98-108); Creatinine, Blood 0.23 mg/dL (0.60-1.20); Glomerular Filtration Rate 164 (60-); Glucose, Blood 133 mg/dL (70-99); Phosphorus, Blood 3.2 mg/dL (2.5-4.9); Potassium, Blood 3.4 mmol/L (3.5-5.5); Sodium, Blood 133 mmol/L (136-145)
--- NOTE | 2022-10-21 18:47 | NUR ---
SHIFT SUMMARY PT MOSTLY LETHARGIC THIS SHIFT. ABLE TO SQUEEZE HAND, PUPILS UNEQUAL. SP02>90% ON TRACH, HOME VENT, RA. TELEMETRY SHOWS NSR/SINUS PEYTON, HR 50'S-60'S. SOME HTN THIS SHIFT. SP CHRONIC CHAMBERS DRAINING YELLOW URINE TO GRAVITY. NO BM THIS SHIFT. MD ZHANG IN ROOM TO ASSESS. FLUIDS STOPS, LASIX GIVEN PER ORDERS. K+ ELIXER GIVEN IN PT, SEE EMAR. PT'S MOM DID REPOSITIONING T/O SHIFT. ABX INFUSED PER EMAR. PT SUCTIONED WHEN NEEDED. DIETARY IN ROOM TO ASSESS. TF TO START TODAY. CALL LIGHT IN REACH.
--- NOTE | 2022-10-21 20:15 | NUR ---
ASSUMPTION OF CARE RECEIVED BEDSIDE REPORT FROM ARSH PARKS AND ASSUMED CARE. PT IS RESTING IN BED WITH EYES OPEN, NOT TRACKING MOVEMENT OR ATTEMPTING TO COMMUNICATE. MOM (MALLIKA) AT THE BEDSIDE AND VERY HELPFUL WITH CARE. AT BASELINE, PT IS ALERT AND TALKATIVE. PER MALLIKA "I'M VERY WORRIED THAT HE'S NOT REALLY WAKING UP AND I WANT TO TAKE HIM TO [facility] TOMORROW IF HE DOESN'T START GETTING BETTER". AT BASELINE, PT IS BEDBOUND, FULL CARE, ON A HOME VENT. CURRENTLY NOT PARTICIPATING AT ALL AND NO ATTEMPT AT SPONTANEOUS MOVEMENT. VSS, HOME VENT IN PLACE WITH NO BLEED IN OF O2. PEG TUBE IN PLACE WITH PLAN TO START TF TONIGHT. SUPRAPUBIC CATHETER IS DRAINING YELLOW URINE. SEE COMPLETE ASSESSMENT. FAMILY IN ROOM ASSESSED FOR IGNITION RISK AND EDUCATED R/T TO FIRE PREVENTION AND SAFETY, NO SOURCES OF IGNITION AT THIS TIME. WILL CONTINUE TO MONITOR CLOSELY AND CONTINUE PLAN OF CARE. CALL LIGHT AND BELONGINGS IN REACH OF THE PT'S MOM.
[2022-10-22] VITALS (32 sets, daily range): BP systolic 106–174; BP diastolic 72–107
[2022-10-22 05:31] LABS: Bun/Creatinine Ratio 53.2 (12.0-20.0); Calcium, Blood 8.7 mg/dL (8.5-10.1); Creatinine, Blood 0.36 mg/dL (0.60-1.20); Magnesium, Blood 2.5 mg/dL (1.6-2.4); Phosphorus, Blood 1.9 mg/dL (2.5-4.9); Potassium, Blood 3.2 mmol/L (3.5-5.5)
--- NOTE | 2022-10-22 07:17 | NUR ---
PT REMAINS LETHARGIC THROUGHOUT THE SHIFT. MOM (MALLIKA) AT BEDSIDE AND EXPRESSING CONCERN ABOUT LACK OF IMPROVEMENT. SHE IS EXPRESSING A DESIRE TO CONSIDER TRANSFER TO [facility] TODAY. VSS, SEE ASSESSMENT FOR DETAILS. PT WILL MOVE TONGUE IN RESPONSE TO ORAL SUCTION AND WILL OCCASSIONALLY MOVE LEGS DURING REPOSITIONING. EYES REMAIN PARTLY OPEN AT ALL TIMES AND ARE NOT TRACKING ANYONE IN THE ROOM. PUPILS ARE MINIMALLY RESPONSIVE AND R IS SMALLER THAN LEFT (BASELINE FOR PT). HOME VENT IN PLACE WITH NO CHANGE TO SETTINGS, SATS STABLE ON ROOM AIR. TELE SHOWS SINUS PEYTON IN THE 50'S WITH NO EVENTS. SUPRAPUBIC CATHETER IS DRAINING YELLOW URINE. TF INITIATED AND RUNNING AT 20 ML/HR PER ORDER. WILL PROVIDE BEDSIDE REPORT TO ONCOMING RN.
--- NOTE | 2022-10-22 11:45 | NUR ---
PT UPDATE PT LETHARGIC, RESPONDS TO SOME QUESTIONS WITH A YES OR NO HEAD NOD, ATTEMPTS TO SQUEEZE HAND VERY WEAKLY. PUPILS UNEQUAL. SP02>90% ON HOME VENT RA. TELEMETRY SHOWS NSR/SB HR 50'S-60'S. NO BM THIS SHIFT. SP CATHETER DRAINING YELLOW URINE TO GRAVITY. MOM IN ROOM, REPOSITIONS PT. TF INFUSING AT 20 MLS/HR. STAT HEAD CT THIS AM. MD KAUFMAN NOTIFED OF RESULTS. MD KAUFMAN W/ ORDERS TO TRANSFER TO ICU TO AWAIT TRANSFER TO [facility]. MD KAUFMAN IN ROOM TO INFORM PT'S MOM. HAD DIFFICULT CODE STATUS DISCUSSION AND PT MADE DNR. TF STOPPED PER [facility] RECOMMENDATIONS TO HAVE STOMACH EMPTY FOR IMMEDIATE SURGERY UPON ARRIVAL. MD ZHANG INFORMED OF CHANGES. MD ZHANG W/ INSTRUCTIONS TO NOT START FLUIDS TO AVOID DILUTING NA+. ABX INFUSED THIS SHIFT. KPHOS CURRENTLY INFUSING PER EMAR. WILL GIVE REPORT TO MACHINE FARMWORKER.
[2022-10-22 11:55] LABS: SARS-Cov-2 (COVID-19) PCR, MMC NEGATIVE (NEGATIVE)
--- NOTE | 2022-10-22 12:54 | NUR ---
As Pt. is being transferred from [facility], facilitate connection and life review with Family. Pts. mom displays evidence of being supportive and reasonable. Family welcomes spiritual care support. Will remain available to Pt. and family.
--- NOTE | 2022-10-22 14:57 | NUR ---
Assumed care of pt on arrival to ICU 11 from PCU 20 at 1243. Transferred to ICU for increased monitoring while patient awaits transfer to [facility] for neurosurgery care due to failure of TABULATING MACHINE MECHANIC shunt. Pt's mother, Yoana; and lorichamp Vazquez at bedside shortly after pt's transfer to ICU. Patient opens/widens eyes with verbal stimulus. Does not obviously follow commands, but moves tongue when discussing oral care or attempting to check oral temperature. Tongue large and sticking out of patient's mouth. Pt's mother states tongue is at baseline size. Pupils are round, unequal. R pupil 2 mm, L pupil 4 mm. Reactive to light, sluggish. Per report, pt's pupils are unequal at baseline. Pt has trach, connected to home vent, SIMV with room air. Tube present to LUQ, reportedly for feeding. Tube present to RLQ, reportedly "for gas". Currently no tube feeds as concern that pt may have emergent surgery when he arrives at accepting facility. Suprapubic catheter present. Hard cast to ZENA; pt's mother reports that arm was broken in May and is slow-healing. States that she checks the skin every time she showers him and the skin beneath the cast is unremarkable- this last skin check under cast was on Wednesday. Implant noted behind L ear, pt's mother states this is for a cochlear implant. Pt has had implant for 3 years. On assessment, the rest of the pt's skin is unremarkable, including on sacrum/coccyx. Pt is sinus bradycardia, rate 47-57. BP high/normal. Pt's mother states that his heart rate is slower when he's cold. Temporal temperature measurement is 96.1. Unable to obtain measurement with oral thermometer. Rectal probe inserted for continuous monitoring and pt's temp was 93.8. José hugger placed on maximum warming setting. Call placed to Dr Walker to inquire about transfer, provider stated that Dr Quiñonez of [facility] neurosurgery was coordinating patient's transfer to [facility] today. ICU capacity manager called [facility] transfer center for update on transfer and they stated anticipation that bed will come available for patient today. Updated pt's mother.
--- NOTE | 2022-10-22 16:15 | NUR ---
No updates on bed availability from [facility]. Per request of family and approval of Dr Walker, called additional facilities to expidite patient care. [facility] does not have ICU bed to accomodate this patient. [facility] reviewing case.
--- NOTE | 2022-10-22 17:06 | NUR ---
Dr Walker in to see patient and family around 1600; patient stacking breaths but otherwise no changes to neuro assessment. At 1654, this RN called provider as patient was no longer responsive. Pupils were questionably reactive to light whereas before they were very sluggish. No changes in size or or shape. Provider at bedside at 1700; confirmed that neuro status had worsened. Dr Ho at bedside per family request to assess breathing as patient was now stacking breaths. hammer fitter placed call to [facility] transfer center to notify of worsening condition and request status update on bed availability. Facility stated "within an hour, but no guarantees". Pt's mom discusses possibility of leaving AMA to drive patient to higher level of care. Discussed that patient is worsening in condition and driving to [facility] would cause further delay in care. Pt's mom is understanding and agreeable with plan of care to wait for [facility] bed assignment. [facility] reviewing case; states they have open ICU bed. Plan to transfer patient to facility that can accept patient first.
--- NOTE | 2022-10-22 17:30 | NUR ---
[facility] called and stated they cannot accomodate this patient. Per family request, this RN placed calls to [facility], [facility], and [facility]. All facilities stated they cannot accomodate the patient at this time. Family updated. Family remains agreeable with plan of care to await bed assignment from [facility] instead of leaving AMA.
--- NOTE | 2022-10-22 19:51 | NUR ---
Patient departed ICU 11 for 7N Bed 11 at [facility] at 1920 accompanied by [facility]. Report called to Connie PARKS. Pt's family at bedside at time of departure. Pt's mother, Yoana, plans on driving up tonight. Provided with phone number for nurses station.
== END 2022-10-22 19:25 | disposition short-term general hospital (02) | DRG 640 ==
LOC: ER 09:35 → ICUE 13:56 → MEDS 13:56 → PCU 13:56 → ICUE 10-22 12:40
PROVIDERS: Hospitalist; Internal Medicine Nephrology; Student in an Organized Health Care Education/Training Program; ADMIT Family Medicine
PROC: 0T9B70Z Drainage of Bladder with Drainage Device, Via Natural or Artificial Opening (ICD-10-PCS; principal; 2022-10-20)
DX: E87.1 Hypo-osmolality and hyponatremia (principal); G82.50 Quadriplegia, unspecified; G92.8 Other toxic encephalopathy; N39.0 Urinary tract infection, site not specified; J96.11 Chronic respiratory failure with hypoxia; G91.9 Hydrocephalus, unspecified; E87.6 Hypokalemia; Z20.822 Contact with and (suspected) exposure to COVID-19; D64.9 Anemia, unspecified; E83.39 Other disorders of phosphorus metabolism; M41.9 Scoliosis, unspecified; R13.10 Dysphagia, unspecified; F32.9 Major depressive disorder, single episode, unspecified; K21.9 Gastro-esophageal reflux disease without esophagitis; N31.9 Neuromuscular dysfunction of bladder, unspecified; Z98.2 Presence of cerebrospinal fluid drainage device; Z88.2 Allergy status to sulfonamides; Z91.040 Latex allergy status; Z88.5 Allergy status to narcotic agent; Z79.899 Other long term (current) drug therapy; Z79.2 Long term (current) use of antibiotics; Z79.891 Long term (current) use of opiate analgesic; Z93.1 Gastrostomy status; Z93.0 Tracheostomy status; Z98.890 Other specified postprocedural states; Z87.730 Personal history of (corrected) cleft lip and palate
CPT/HCPCS: 36415; 70250; 70450; 71045; 74018; 80048; 80053; 80069; 81001; 82140; 82533; 82803; 83735; 83930; 84100; 84145; 84443; 84550; 85025; 85651; 86140; 87040; 87086; 94762; 96365; 96366; 96367; 99285-25; A9270; J0692; J0696; J1940; J3370; J3480; J7030; J7050; J7060; U0002

== ENCOUNTER → 2022-12-25 | Outpatient (CLI) | payer OTHER ==
[~2022-12-25] MED LIST changes: +LORAZEPAM2 MG/1 M1 IV; +TEMAZEPAM1511 PO
== END ==
LOC: LAB SHORT 15:20 → LAB 15:20
DX: J98.11 Atelectasis (principal)
CPT/HCPCS: 87070; 87077; 87186; 87205

== ENCOUNTER 2023-04-03 13:49 | Emergency (ER) | payer OTHER ==
[~2023-04-03] VITALS: Ht 147.3 cm; Wt 45.4 kg
[2023-04-03 14:01] VITALS: BP 113/73
[2023-04-03 15:23] LABS: BASOPHILS ABSOLUTE AUTO 0.03 K/mm3 (0.00-0.23); BASOPHILS PERCENT AUTO 0 % (0-2); EOSINOPHILS ABSOLUTE AUTO 0.11 K/mm3 (0.00-0.68); EOSINOPHILS PERCENT AUTO 1 % (0-6); Hematocrit 39.7 % (37.0-53.0); Hemoglobin 12.7 g/dL (13.5-17.5); IMMATURE GRAN ABSOLUTE AUTO 0.02 K/mm3 (0.00-0.10); IMMATURE GRAN PERCENT AUTO 0 % (0-1); LYMPHOCYTES ABSOLUTE AUTO 1.28 K/mm3 (0.84-5.20); LYMPHOCYTES PERCENT AUTO 17 % (21-46); MONOCYTES ABSOLUTE AUTO 0.49 K/mm3 (0.16-1.47); MONOCYTES PERCENT AUTO 6 % (4-13); Mean Corpuscular HGB 26.5 pg (26.0-34.0); Mean Corpuscular Volume 83 fL (80-100); Mean Platelet Volume 10.1 fL (9.1-12.4); NEUTROPHILS PERCENT AUTO 75 % (41-73); Platelet Count 199 K/mm3 (150-400); RDW Coefficient Variation 15.7 % (11.7-14.2); RDW Standard Deviation 47.6 fL (35.1-46.3); White Blood Cell Count 7.63 K/mm3 (4.00-11.30)
[2023-04-03 15:50] LABS: Albumin, Blood 3.6 g/dL (3.4-5.0); Albumin/Globulin Ratio 0.7 (0.8-1.8); Bilirubin, Total 0.5 mg/dL (0.1-1.0); Bun/Creatinine Ratio 43.9 (12.0-20.0); Calcium, Blood 9.5 mg/dL (8.5-10.1); Creatinine, Blood 0.32 mg/dL (0.60-1.20); Potassium, Blood 3.7 mmol/L (3.5-5.5); Total Protein, Blood 8.6 g/dL (6.4-8.2)
[2023-04-03] MEDS ORDERED: CEPH500 PO (16:55)
== END 2023-04-03 16:52 | disposition home or self-care (01) ==
LOC: ER 13:49
PROVIDERS: Student in an Organized Health Care Education/Training Program
DX: L89.149 Pressure ulcer of left lower back, unspecified stage (principal); Z88.5 Allergy status to narcotic agent; Z88.2 Allergy status to sulfonamides; Z91.040 Latex allergy status; Z79.899 Other long term (current) drug therapy
CPT/HCPCS: 36415; 80053; 85025; 93971; 99284-25

== ENCOUNTER 2023-04-14 02:59 | Day surgery (SDC) | payer OTHER | END 2023-04-14 23:19 | disposition home or self-care (01) | LOC: WOUND 02:59 | DX: L89.153 Pressure ulcer of sacral region, stage 3 (principal); Q05.9 Spina bifida, unspecified; J96.10 Chronic respiratory failure, unspecified whether with hypoxia or hypercapnia; G82.53 Quadriplegia, C5-C7 complete; Z88.5 Allergy status to narcotic agent; Z88.2 Allergy status to sulfonamides; Z91.040 Latex allergy status | CPT/HCPCS: A9270; G0463 ==

== ENCOUNTER 2023-04-19 08:00 | Day surgery (SDC) | payer OTHER | END 2023-04-19 23:59 | disposition home or self-care (01) | LOC: WOUND 08:00 | DX: L89.153 Pressure ulcer of sacral region, stage 3 (principal); G82.53 Quadriplegia, C5-C7 complete; Q05.0 Cervical spina bifida with hydrocephalus | CPT/HCPCS: A9270 ==

== ENCOUNTER 2023-04-26 00:20 | Day surgery (SDC) | payer OTHER ==
[2023-04-26] MEDS ORDERED: Lidocaine HCl 4% Cream 5 GM ONE (10:47)
== END 2023-04-26 23:47 | disposition home or self-care (01) ==
LOC: WOUND 00:20
DX: L89.153 Pressure ulcer of sacral region, stage 3 (principal); J96.10 Chronic respiratory failure, unspecified whether with hypoxia or hypercapnia; Z93.0 Tracheostomy status; G82.53 Quadriplegia, C5-C7 complete; Q05.0 Cervical spina bifida with hydrocephalus
CPT/HCPCS: A9270; G0463

== ENCOUNTER 2023-05-10 08:00 | Day surgery (SDC) | payer OTHER ==
[2023-05-10] MEDS ORDERED: Lidocaine HCl 4% Cream 5 GM ONE (12:18)
== END 2023-05-11 22:45 | disposition home or self-care (01) ==
LOC: WOUND 08:00
DX: L89.153 Pressure ulcer of sacral region, stage 3 (principal); J96.10 Chronic respiratory failure, unspecified whether with hypoxia or hypercapnia; G82.53 Quadriplegia, C5-C7 complete; Q05.0 Cervical spina bifida with hydrocephalus; Z93.0 Tracheostomy status
CPT/HCPCS: A6213; A9270; G0463

== ENCOUNTER → 2023-10-22 | Outpatient (CLI) | payer OTHER ==
[~2023-10-22] MED LIST changes: +MEROPENEM IV
[2023-10-22 13:07] LABS: BASOPHILS ABSOLUTE AUTO 0.03 K/mm3 (0.00-0.23); BASOPHILS PERCENT AUTO 0 % (0-2); EOSINOPHILS ABSOLUTE AUTO 0.14 K/mm3 (0.00-0.68); EOSINOPHILS PERCENT AUTO 1 % (0-6); Hematocrit 40.8 % (37.0-53.0); Hemoglobin 12.8 g/dL (13.5-17.5); IMMATURE GRAN ABSOLUTE AUTO 0.06 K/mm3 (0.00-0.10); IMMATURE GRAN PERCENT AUTO 1 % (0-1); LYMPHOCYTES ABSOLUTE AUTO 1.83 K/mm3 (0.84-5.20); LYMPHOCYTES PERCENT AUTO 18 % (21-46); MONOCYTES ABSOLUTE AUTO 0.39 K/mm3 (0.16-1.47); MONOCYTES PERCENT AUTO 4 % (4-13); Mean Corpuscular HGB 27.3 pg (26.0-34.0); Mean Corpuscular HGB Conc 31.4 g/dL (31.5-36.5); Mean Corpuscular Volume 87 fL (80-100); Mean Platelet Volume 9.8 fL (9.1-12.4); NEUTROPHILS ABSOLUTE AUTO 7.47 K/mm3 (1.96-9.15); NEUTROPHILS PERCENT AUTO 75 % (41-73); Platelet Count 220 K/mm3 (150-400); RDW Coefficient Variation 14.2 % (11.7-14.2); RDW Standard Deviation 44.5 fL (35.1-46.3); Red Blood Cell Count 4.69 M/mm3 (4.30-5.90); White Blood Cell Count 9.92 K/mm3 (4.00-11.30)
[2023-10-22 13:26] LABS: Albumin, Blood 3.5 g/dL (3.4-5.0); Albumin/Globulin Ratio 0.7 (0.8-1.8); Bilirubin, Total 0.2 mg/dL (0.1-1.0); Calcium, Blood 9.5 mg/dL (8.5-10.1); Creatinine, Blood 0.36 mg/dL (0.60-1.20); Globulin, Blood 5.1 g/dL (2.2-4.0); Potassium, Blood 4.2 mmol/L (3.5-5.5); Total Protein, Blood 8.6 g/dL (6.4-8.2)
== END ==
LOC: LAB SHORT 13:04 → LAB 13:04
PROVIDERS: Chiropractor
DX: E86.0 Dehydration (principal)
CPT/HCPCS: 80053; 85025

== ENCOUNTER 2023-11-23 02:20 | Day surgery (SDC) | payer OTHER ==
[2023-11-23] MEDS ORDERED: Lidocaine HCl 4% Cream 5 GM ONE (12:13)
== END 2023-11-23 23:12 | disposition home or self-care (01) ==
LOC: WOUND 02:20
DX: L89.154 Pressure ulcer of sacral region, stage 4 (principal); L89.324 Pressure ulcer of left buttock, stage 4; G82.53 Quadriplegia, C5-C7 complete; Q05.0 Cervical spina bifida with hydrocephalus; Z99.3 Dependence on wheelchair; Z88.5 Allergy status to narcotic agent; Z88.2 Allergy status to sulfonamides; Z91.040 Latex allergy status; J45.909 Unspecified asthma, uncomplicated
CPT/HCPCS: A9270; G0463

== ENCOUNTER 2023-12-06 04:08 | Day surgery (SDC) | payer OTHER ==
[2023-12-06] MEDS ORDERED: Lidocaine HCl 4% Cream 5 GM ONE (14:22)
== END 2023-12-06 23:00 ==
LOC: WOUND 04:08
DX: L89.154 Pressure ulcer of sacral region, stage 4 (principal); L89.324 Pressure ulcer of left buttock, stage 4; Q05.0 Cervical spina bifida with hydrocephalus; G82.53 Quadriplegia, C5-C7 complete
CPT/HCPCS: A9270

== ENCOUNTER 2023-12-20 01:59 | Day surgery (SDC) | payer OTHER ==
[2023-12-20] MEDS ORDERED: Lidocaine HCl 4% Cream 5 GM ONE (15:18)
== END 2023-12-20 23:00 | disposition home or self-care (01) ==
LOC: WOUND 01:59
DX: L89.154 Pressure ulcer of sacral region, stage 4 (principal); L89.324 Pressure ulcer of left buttock, stage 4; G82.53 Quadriplegia, C5-C7 complete; Q05.0 Cervical spina bifida with hydrocephalus
CPT/HCPCS: A9270; G0463

== ENCOUNTER 2024-01-03 03:00 | Day surgery (SDC) | payer OTHER ==
[2024-01-03] MEDS ORDERED: Lidocaine HCl 4% Cream 5 GM ONE (14:59)
[2024-01-03] MEDS ORDERED: Silver Nitr/Potassium Nitrate 1 EA APPL ONE (15:15)
== END 2024-01-03 23:00 | disposition home or self-care (01) ==
LOC: WOUND 03:00
DX: L89.154 Pressure ulcer of sacral region, stage 4 (principal); L89.324 Pressure ulcer of left buttock, stage 4; G82.53 Quadriplegia, C5-C7 complete; Q05.0 Cervical spina bifida with hydrocephalus; Z93.0 Tracheostomy status; Z99.3 Dependence on wheelchair
CPT/HCPCS: A9270

== ENCOUNTER 2024-01-17 02:34 | Day surgery (SDC) | payer OTHER ==
[2024-01-17] MEDS ORDERED: Lidocaine HCl 4% Cream 5 GM ONE (14:47)
[2024-01-17] MEDS ORDERED: Silver Nitr/Potassium Nitrate 1 EA APPL ONE (14:57)
== END 2024-01-17 22:59 | disposition home or self-care (01) ==
LOC: WOUND 02:34
DX: L89.154 Pressure ulcer of sacral region, stage 4 (principal); L89.324 Pressure ulcer of left buttock, stage 4; G82.53 Quadriplegia, C5-C7 complete; Q05.0 Cervical spina bifida with hydrocephalus
CPT/HCPCS: A9270

== ENCOUNTER 2024-01-21 09:54 | Emergency (ER) | payer OTHER ==
[~2024-01-21] VITALS: Ht 177.8 cm; Wt 45.4 kg
[2024-01-21 10:17] VITALS: BP 118/81
[2024-01-21 11:14] LABS: Albumin, Blood 3.2 g/dL (3.4-5.0); Albumin/Globulin Ratio 0.7 (0.8-1.8); Bilirubin, Total 0.2 mg/dL (0.1-1.0); Bun/Creatinine Ratio 47.1 (12.0-20.0); Calcium, Blood 9.1 mg/dL (8.5-10.1); Creatinine, Blood 0.28 mg/dL (0.60-1.20); Globulin, Blood 4.5 g/dL (2.2-4.0); Potassium, Blood 4.2 mmol/L (3.5-5.5); Total Protein, Blood 7.7 g/dL (6.4-8.2)
[2024-01-21 15:20] LABS: BASOPHILS ABSOLUTE AUTO 0.02 K/mm3 (0.00-0.23); BASOPHILS PERCENT AUTO 0 % (0-2); EOSINOPHILS ABSOLUTE AUTO 0.12 K/mm3 (0.00-0.68); EOSINOPHILS PERCENT AUTO 1 % (0-6); Hematocrit 37.6 % (37.0-53.0); Hemoglobin 12.1 g/dL (13.5-17.5); IMMATURE GRAN ABSOLUTE AUTO 0.05 K/mm3 (0.00-0.10); IMMATURE GRAN PERCENT AUTO 0 % (0-1); LYMPHOCYTES ABSOLUTE AUTO 1.02 K/mm3 (0.84-5.20); LYMPHOCYTES PERCENT AUTO 8 % (21-46); MONOCYTES ABSOLUTE AUTO 0.42 K/mm3 (0.16-1.47); MONOCYTES PERCENT AUTO 3 % (4-13); Mean Corpuscular HGB Conc 32.2 g/dL (31.5-36.5); Mean Corpuscular Volume 81 fL (80-100); Mean Platelet Volume 10.2 fL (9.1-12.4); NEUTROPHILS ABSOLUTE AUTO 11.33 K/mm3 (1.96-9.15); NEUTROPHILS PERCENT AUTO 87 % (41-73); Platelet Count 182 K/mm3 (150-400); RDW Coefficient Variation 16.1 % (11.7-14.2); RDW Standard Deviation 46.6 fL (35.1-46.3); Red Blood Cell Count 4.66 M/mm3 (4.30-5.90); White Blood Cell Count 12.96 K/mm3 (4.00-11.30)
[2024-01-21 15:48] LABS: Influenza A, PCR NEGATIVE (NEGATIVE); Influenza B, PCR NEGATIVE (NEGATIVE); Resp Syncytial Virus, PCR NEGATIVE (NEGATIVE); SARS-Cov-2 (COVID-19) PCR, MMC NEGATIVE (NEGATIVE)
[2024-01-21] MEDS ORDERED: Azithromycin 200 MG/5 ML SUSP 5ML UDC PT ONE (16:05)
[2024-01-21] MEDS ORDERED: Zithromax200 MG/5 M PO (16:14)
[2024-01-21] MEDS ORDERED: ADULT TUSS100 MG/51 PO (16:14)
== END 2024-01-21 16:33 | disposition home or self-care (01) ==
LOC: ER 09:54
PROVIDERS: Physician Assistant; Student in an Organized Health Care Education/Training Program
DX: J18.9 Pneumonia, unspecified organism (principal); D72.829 Elevated white blood cell count, unspecified; Z93.0 Tracheostomy status; Z79.899 Other long term (current) drug therapy; Z88.2 Allergy status to sulfonamides; Z91.040 Latex allergy status; Z88.5 Allergy status to narcotic agent
CPT/HCPCS: 0241U; 36415; 71045; 80053; 85025; 99284-25; A9270

== ENCOUNTER 2024-02-14 01:22 | Day surgery (SDC) | payer OTHER ==
[~2024-02-14 01:22] MED LIST changes: +ADULT TUSS100 MG/51 PO; +Zithromax200 MG/5 M PO
[2024-02-14] MEDS ORDERED: Lidocaine HCl 4% Cream 5 GM ONE (14:31)
== END 2024-02-14 23:00 | disposition home or self-care (01) ==
LOC: WOUND 01:22
DX: L89.154 Pressure ulcer of sacral region, stage 4 (principal); L89.324 Pressure ulcer of left buttock, stage 4; G82.53 Quadriplegia, C5-C7 complete; Q05.0 Cervical spina bifida with hydrocephalus
CPT/HCPCS: A6196; A9270; G0463

== ENCOUNTER 2024-02-28 03:21 | Day surgery (SDC) | payer OTHER ==
[2024-02-28] MEDS ORDERED: Lidocaine HCl 4% Cream 5 GM ONE (14:09)
[2024-02-28] MEDS ORDERED: Silver Nitr/Potassium Nitrate 1 EA APPL ONE (14:19)
== END 2024-02-28 23:00 | disposition home or self-care (01) ==
LOC: WOUND 03:21
DX: L89.154 Pressure ulcer of sacral region, stage 4 (principal); L89.324 Pressure ulcer of left buttock, stage 4; G82.53 Quadriplegia, C5-C7 complete; Q05.0 Cervical spina bifida with hydrocephalus; J96.10 Chronic respiratory failure, unspecified whether with hypoxia or hypercapnia; Z93.0 Tracheostomy status; Z99.3 Dependence on wheelchair
CPT/HCPCS: A9270; G0463

== ENCOUNTER 2024-03-13 03:26 | Day surgery (SDC) | payer OTHER ==
[2024-03-13] MEDS ORDERED: Lidocaine HCl 4% Cream 5 GM ONE (14:22)
[2024-03-13] MEDS ORDERED: Silver Nitr/Potassium Nitrate 1 EA APPL ONE (14:47)
== END 2024-03-13 23:00 | disposition home or self-care (01) ==
LOC: WOUND 03:26
DX: L89.154 Pressure ulcer of sacral region, stage 4 (principal); L89.324 Pressure ulcer of left buttock, stage 4; G82.53 Quadriplegia, C5-C7 complete; Q05.0 Cervical spina bifida with hydrocephalus
CPT/HCPCS: A9270

== ENCOUNTER 2024-03-27 04:45 | Day surgery (SDC) | payer OTHER ==
[2024-03-27] MEDS ORDERED: Lidocaine HCl 4% Cream 5 GM ONE (13:56)
[2024-03-27] MEDS ORDERED: Silver Nitr/Potassium Nitrate 1 EA APPL ONE (14:10)
== END 2024-03-27 23:00 | disposition home or self-care (01) ==
LOC: WOUND 04:45
DX: L89.324 Pressure ulcer of left buttock, stage 4 (principal); L89.154 Pressure ulcer of sacral region, stage 4; G82.53 Quadriplegia, C5-C7 complete; Q05.0 Cervical spina bifida with hydrocephalus
CPT/HCPCS: A9270

== ENCOUNTER 2024-04-10 02:31 | Day surgery (SDC) | payer OTHER ==
[2024-04-10] MEDS ORDERED: Lidocaine HCl 4% Cream 5 GM ONE (14:25)
== END 2024-04-10 23:00 | disposition home or self-care (01) ==
LOC: WOUND 02:31
DX: L89.324 Pressure ulcer of left buttock, stage 4 (principal); L89.154 Pressure ulcer of sacral region, stage 4; J96.10 Chronic respiratory failure, unspecified whether with hypoxia or hypercapnia; Q05.0 Cervical spina bifida with hydrocephalus
CPT/HCPCS: A9270; G0463

== ENCOUNTER 2024-05-15 01:32 | Day surgery (SDC) | payer OTHER ==
[2024-05-15] MEDS ORDERED: Lidocaine HCl 4% Cream 5 GM ONE (12:57)
== END 2024-05-15 23:00 | disposition home or self-care (01) ==
LOC: WOUND 01:32
DX: L89.324 Pressure ulcer of left buttock, stage 4 (principal); L89.154 Pressure ulcer of sacral region, stage 4; G82.53 Quadriplegia, C5-C7 complete; Q05.0 Cervical spina bifida with hydrocephalus; Z99.3 Dependence on wheelchair; Z93.0 Tracheostomy status
CPT/HCPCS: A6213; A9270; G0463

== ENCOUNTER 2024-06-05 02:35 | Day surgery (SDC) | payer OTHER | END 2024-06-05 22:51 | disposition home or self-care (01) | LOC: WOUND 02:35 | DX: L89.324 Pressure ulcer of left buttock, stage 4 (principal); G82.53 Quadriplegia, C5-C7 complete; Q05.0 Cervical spina bifida with hydrocephalus; Z99.3 Dependence on wheelchair; Z93.0 Tracheostomy status | CPT/HCPCS: A6213; G0463 ==

== ENCOUNTER 2024-06-26 01:42 | Day surgery (SDC) | payer OTHER ==
[2024-06-26] MEDS ORDERED: Lidocaine HCl 4% Cream 5 GM ONE (12:41)
== END 2024-06-26 23:00 | disposition home or self-care (01) ==
LOC: WOUND 01:42
DX: L89.324 Pressure ulcer of left buttock, stage 4 (principal); L89.154 Pressure ulcer of sacral region, stage 4; G82.53 Quadriplegia, C5-C7 complete; Q05.0 Cervical spina bifida with hydrocephalus
CPT/HCPCS: A6196; A6213; A9270; G0463

== ENCOUNTER 2024-12-26 01:57 | Day surgery (SDC) | payer OTHER ==
[2024-12-26] MEDS ORDERED: Lidocaine HCl 4% Cream 5 GM ONE (13:46)
== END 2024-12-26 23:00 | disposition home or self-care (01) ==
LOC: WOUND 01:57
DX: L89.154 Pressure ulcer of sacral region, stage 4 (principal); G82.53 Quadriplegia, C5-C7 complete; Q05.0 Cervical spina bifida with hydrocephalus; Z88.5 Allergy status to narcotic agent; Z88.2 Allergy status to sulfonamides; Z91.040 Latex allergy status
CPT/HCPCS: A6213; A9270; G0463

== ENCOUNTER 2025-01-06 13:45 | Emergency (ER) | payer OTHER | END 2025-01-06 17:52 | disposition home or self-care (01) | LOC: ER 13:45 | DX: J18.9 Pneumonia, unspecified organism (principal); N39.0 Urinary tract infection, site not specified; J96.11 Chronic respiratory failure with hypoxia; G82.50 Quadriplegia, unspecified; N31.9 Neuromuscular dysfunction of bladder, unspecified; Z93.0 Tracheostomy status; Z93.50 Unspecified cystostomy status; Z86.16 Personal history of COVID-19; Z88.5 Allergy status to narcotic agent; Z88.2 Allergy status to sulfonamides; Z91.040 Latex allergy status; Z79.2 Long term (current) use of antibiotics; Z79.899 Other long term (current) drug therapy ==

== ENCOUNTER 2025-01-08 01:15 | Day surgery (SDC) | payer OTHER ==
[2025-01-08] MEDS ORDERED: Lidocaine HCl 4% Cream 5 GM ONE (15:16)
== END 2025-01-08 23:00 | disposition home or self-care (01) ==
LOC: WOUND
DX: L89.154 Pressure ulcer of sacral region, stage 4 (principal); G82.53 Quadriplegia, C5-C7 complete; Q05.0 Cervical spina bifida with hydrocephalus
CPT/HCPCS: A6213; A9270; G0463

== ENCOUNTER 2025-01-22 00:32 | Day surgery (SDC) | payer OTHER ==
[2025-01-22] MEDS ORDERED: Lidocaine HCl 4% Cream 5 GM ONE (15:01)
== END 2025-01-22 23:04 | disposition home or self-care (01) ==
LOC: WOUND 00:32
DX: L89.144 Pressure ulcer of left lower back, stage 4 (principal); G82.53 Quadriplegia, C5-C7 complete; Q05.0 Cervical spina bifida with hydrocephalus; Z99.3 Dependence on wheelchair
CPT/HCPCS: A6213; A9270

== ENCOUNTER 2025-02-19 02:47 | Day surgery (SDC) | payer OTHER ==
[2025-02-19] MEDS ORDERED: Lidocaine HCl 4% Cream 5 GM ONE (14:54)
== END 2025-02-19 23:59 | disposition home or self-care (01) ==
LOC: WOUND 02:47
DX: L89.104 Pressure ulcer of unspecified part of back, stage 4 (principal); G82.53 Quadriplegia, C5-C7 complete; Q05.0 Cervical spina bifida with hydrocephalus
CPT/HCPCS: A6213; A9270; G0463